=== PATIENT | female | born 1930 | race Caucasian/White ===

== ENCOUNTER 2016-07-24 18:38 | Inpatient (IN) | payer MEDICARE, BC ==
[2016-07-24] MEDS ORDERED: METHYLPREDNISOLONE PF 125MG/VIAL IVP ONE (18:45)
[2016-07-24] MEDS ORDERED: IPRATROPIUM/ALBUTEROL (0.5MG/3MG) NEB INH ONE (18:45)
--- NOTE | 2016-07-24 18:50 | Emergency Department Record ---
History of Present Illness - General Chief Complaint: Shortness of breath Stated Complaint: SHORTNESS OF BREATH Time Seen by Provider: 07/24/16 18:44 Source: Patient, Family - History of Present Illness Initial Comments: Daughter reports that she brought her Mom to the doctor's 2 days ago for a cough. She was placed on zithromax at that time and has had 3 pills of it since then. Today she was coughing harder and feeling worse so she returned to the hospital. [facility] care found to have a biox around 89-90% room air and brought her to our E.Dept. The patient denies chest pain, ERICK, nausea, vomiting, A{P, or diarrhea. She does say her abdomen and lower ribs hurt when she is coughing, and that she has been having night sweats. MD Complaint: Cough - Related Data Home Medications Medication Instructions Recorded Confirmed Last Taken Aspirin [Aspirin EC] 81 mg PO DAILY 10/05/14 07/24/16 07/24/16 Calcium Carbonate/Vitamin D3 1 each PO DAILY #0 10/05/14 07/24/16 07/24/16 [Calcium 600 + D Tablet] Levothyroxine Sodium [Synthroid] 100 mcg PO DAILY 10/05/14 07/24/16 07/24/16 Omeprazole [Prilosec] 40 mg PO DAILY 10/05/14 07/24/16 07/24/16 Pedi Multivit #22/Vit D3/Vit K 1 each PO DAILY 10/05/14 07/24/16 07/24/16 [Multivitamins Chewables Tablet] Sertraline HCl [Zoloft] 100 mg PO QHS 10/05/14 07/24/16 07/24/16 Sitagliptin Phosphate [Januvia] 100 mg PO DAILY 10/05/14 07/24/16 07/24/16 Amlodipine Besylate [Norvasc] 10 mg PO DAILY 09/13/15 07/24/16 07/24/16 Tramadol HCl [Ultram] 50 mg PO BID PRN 09/13/15 07/24/16 07/24/16 Amlodipine Besylate 5 mg PO QD tab 07/22/16 07/24/16 07/24/16 Glimepiride 2 mg PO QD tab 07/22/16 07/24/16 07/24/16 [place]-3 Fatty Acids [Fish Oil] 300 mg PO QD cap 07/22/16 07/24/16 07/24/16 Previous Rx's Medication Instructions Recorded Acetaminophen [Tylenol 500Mg Tab] 1,000 mg PO Q6H #120 tablet 10/25/14 Oxybutynin Chloride [Ditropan] 5 mg PO QHS #30 tab 10/19/15 Allergies Allergy/AdvReac Type Severity Reaction Status Date / Time butorphanol tartrate Allergy PT UNSURE Unverified 07/24/16 19:01 [From Stadol] OF REACTION Review of Systems Reviewed: No additional complaints except as noted below Constitutional: Reports: As per HPI. Denies: Chills, Fever, Malaise, Night sweats, Weakness, Weight change Eyes: Reports: As per HPI. Denies: Eye discharge, Eye pain, Photophobia, Vision change ENT: Reports: As per HPI. Denies: Congestion, Dental pain, Ear pain, Epistaxis , Hearing loss, Throat pain Respiratory: Reports: As per HPI. Denies: Cough, Dyspnea, Hemoptysis, Stridor, Wheezes Cardiovascular: Reports: As per HPI. Denies: Arrhythmia, Chest pain, Dyspnea on exertion, Edema, Murmurs, Orthopnea, Palpitations, Paroxysmal nocturnal dyspnea, Rheumatic Fever, Syncope Endocrine: Reports: As per HPI. Denies: Fatigue, Heat or cold intolerance, Polydipsia, Polyuria Gastrointestinal: Reports: As per HPI. Denies: Abdominal pain, Constipation, Diarrhea, Hematemesis, Hematochezia, Melena, Nausea, Vomiting Genitourinary: Reports: As per HPI. Denies: Abnormal menses, Discharge, Dyspareunia, Dysuria, Frequency, Hematuria, Incontinence, Retention, Urgency Musculoskeletal: Reports: As per HPI. Denies: Arthralgia, Back pain, Gout, Joint swelling, Myalgia, Neck pain Skin: Reports: As per HPI. Denies: Bruising, Change in color, Change in hair/ nails, Lesions, Pruritus, Rash Neurological: Reports: As per HPI. Denies: Abnormal gait, Confusion, Headache, Numbness, Paresthesias, Seizure, Tingling, Tremors, Vertigo, Weakness Psychiatric: Reports: As per HPI. Denies: Anxiety, Auditory hallucinations, Depression, Homicidal thoughts, Suicidal thoughts, Visual hallucinations Hematological/Lymphatic: Reports: As per HPI. Denies: Anemia, Blood Clots, Easy bleeding, Easy bruising, Swollen glands Past Medical History - SOCIAL HISTORY Smoking Status: Never smoker - RESPIRATORY Hx Respiratory Disorders: No - CARDIOVASCULAR Hx Cardio Disorders: Yes Hx Hypertension: Yes Hx Vascular Disease: Yes - NEURO Hx Neuro Disorders: Yes Hx Dementia: Yes Hx Dizziness: Yes - GI Hx GI Disorders: Yes Hx Ulcer: Yes - Hx Genitourinary Disorders: No - ENDOCRINE Hx Endocrine Disorders: Yes Hx Diabetes: Yes Hx Thyroid Disease: Yes - MUSCULOSKELETAL Hx Musculoskeletal Disorders: Yes Hx Arthritis: Yes Hx Osteoporosis: Yes - PSYCH Hx Psych Problems: Yes Hx Anxiety: Yes Hx Depression: Yes - HEMATOLOGY/ONCOLOGY Hx Hematology/Oncology Disorders: Yes Hx Bruising: Yes (easy) Family Medical History Family Hx Comment (NOT TO BE USED IN PLACE OF ITEMS BELOW): Unablt to assess at this time, awainting family to come in Hx Dementia: Brother/Sister Hx Depression: Brother/Sister Hx Diabetes: Brother/Sister Hx Heart Disease: Mother, Brother/Sister Hx HTN: Mother, Children, Brother/Sister Hx Resp Disorders: Father Hx Stroke: Mother Physical Exam - General General Appearance: Alert, Oriented x3, Cooperative, Mild distress ( intermittent hard and repeated coughing spells; speaks full sentences in between coughing episodes.) - Head Head exam: Normal inspection - Eye Eye exam: Normal appearance, PERRL Pupils: Normal accommodation - ENT ENT exam: Normal exam, Mucous membranes dry, Normal external ear exam, Normal orophraynx, TM's normal bilaterally Ear exam: Normal external inspection. negative: External canal tenderness Nasal Exam: Normal inspection. negative: Discharge, Sinus tenderness Mouth exam: Normal external inspection, Tongue normal Teeth exam: Normal inspection. negative: Dental caries Throat exam: Normal inspection. negative: Tonsillar erythema, Tonsillar exudate - Neck Neck exam: Normal inspection, Full ROM. negative: Tenderness - Respiratory Respiratory exam: Normal lung sounds bilaterally, Rhonchi, Wheezes (rhonchi and wheezes with coughing spells or deep respirations, especially right posterior mid lung lung field). negative: Respiratory distress - Cardiovascular Cardiovascular Exam: Regular rate, Normal rhythm, Normal heart sounds - GI/Abdominal GI/Abdominal exam: Soft, Normal bowel sounds. negative: Tenderness - Rectal Rectal exam: Deferred - exam: Deferred - Extremities Extremities exam: Normal inspection, Full ROM, Normal capillary refill. negative: Calf tenderness, Pedal edema, Tenderness - Back Back exam: Reports: Normal inspection, Full ROM. Denies: Muscle spasm, Rash noted, Tenderness - Neurological Neurological exam: Alert, Normal gait, Oriented X3, Reflexes normal - Psychiatric Psychiatric exam: Normal affect, Normal mood - Skin Skin exam: Dry, Intact, Normal color, Warm Course - Reevaluation(s) Reevaluation #1: Patient just returned from CT scan. Fluids infusing. 07/24/16 19:59 Reevaluation #2: Discussed with Dr. Gtz who agrees with full admission 07/24/16 20:33 Medical Decision Making - Management Options MDM Management: Additional Work-up Planned (e.g. 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 Gtz Time Discussed w/Accepting Physician: 20:34 Condition: (2) Stable Forms: Patient Portal Access
[2016-07-24 18:59] LABS: HEMATOCRIT 43.3 % (35.0-47.0); MEAN CELL VOLUME 89.1 fl (81-97); MEAN CORPUSCULAR HEMOGLOBIN 28.8 pg (27-33); MEAN CORPUSCULAR HGB CONC 32.3 g/dl (32-36); MEAN PLATELET VOLUME 9.7 fl (7.4-10.4); PLATELET COUNT 210 K/uL (130-400); RED BLOOD COUNT 4.86 M/uL (3.80-5.40); WHITE BLOOD COUNT W/O DIFF 7.6 K/uL (4.2-12.2)
[2016-07-24 19:10] LABS: INFLUENZA A NEGATIVE (NEGATIVE); INFLUENZA B NEGATIVE (NEGATIVE)
[2016-07-24 19:11] LABS: ANION GAP 17.8 (7-16); CARBON DIOXIDE 22.2 mmol/L (22-30)
[2016-07-24 19:23] LABS: TROPONIN I 0.013 ng/mL (0.00-0.034)
[2016-07-24] MEDS ORDERED: 0.9 % SODIUM CHLORIDE 500ML 500 ML IV SCH (19:45)
[2016-07-24] MEDS ORDERED: CEFTRIAXONE SODIUM 2 GM in 0.9 % SODIUM CHLORIDE 100ML 100 ML IVPB ONE (20:13)
[2016-07-24 20:23] LABS: URINE APPEARANCE CLEAR; URINE BILIRUBIN NEGATIVE (NEGATIVE); URINE BLOOD NEGATIVE (NEGATIVE); URINE COLOR YELLOW; URINE GLUCOSE (UA) NEGATIVE (NEGATIVE); URINE KETONE NEGATIVE (NEGATIVE); URINE LEUKOCYTE ESTERASE SMALL (NEGATIVE); URINE NITRITE POSITIVE (NEGATIVE); URINE PROTEIN TRACE (NEGATIVE); URINE UROBILINOGEN 0.2 E.U./dL (0.20 - 1.00)
[2016-07-24 20:38] LABS: URINE BACTERIA 2+; URINE EPITHELIAL CELLS 0 - 2 (FEW); URINE RBC 0 - 2 (NONE SEEN)
--- NOTE | 2016-07-24 20:49 | Emergency Department Record ---
History of Present Illness - General Chief Complaint: Shortness of breath Stated Complaint: SHORTNESS OF BREATH Time Seen by Provider: 07/24/16 18:44 Source: Patient, Family Mode of Arrival: Wheelchair - History of Present Illness Onset/Timin -: Days(s) Known History Of: Diabetes - Related Data Home Oxygen Therapy: No Home Medications Medication Instructions Recorded Confirmed Last Taken Aspirin [Aspirin EC] 81 mg PO DAILY 10/05/14 07/24/16 07/24/16 Calcium Carbonate/Vitamin D3 1 each PO DAILY #0 10/05/14 07/24/16 07/24/16 [Calcium 600 + D Tablet] Levothyroxine Sodium [Synthroid] 100 mcg PO DAILY 10/05/14 07/24/16 07/24/16 Omeprazole [Prilosec] 40 mg PO DAILY 10/05/14 07/24/16 07/24/16 Pedi Multivit #22/Vit D3/Vit K 1 each PO DAILY 10/05/14 07/24/16 07/24/16 [Multivitamins Chewables Tablet] Sertraline HCl [Zoloft] 100 mg PO QHS 10/05/14 07/24/16 07/24/16 Sitagliptin Phosphate [Januvia] 100 mg PO DAILY 10/05/14 07/24/16 07/24/16 Amlodipine Besylate [Norvasc] 10 mg PO DAILY 09/13/15 07/24/16 07/24/16 Tramadol HCl [Ultram] 50 mg PO BID PRN 09/13/15 07/24/16 07/24/16 Amlodipine Besylate 5 mg PO QD tab 07/22/16 07/24/16 07/24/16 Glimepiride 2 mg PO QD tab 07/22/16 07/24/16 07/24/16 [place]-3 Fatty Acids [Fish Oil] 300 mg PO QD cap 07/22/16 07/24/16 07/24/16 Previous Rx's Medication Instructions Recorded Acetaminophen [Tylenol 500Mg Tab] 1,000 mg PO Q6H #120 tablet 10/25/14 Oxybutynin Chloride [Ditropan] 5 mg PO QHS #30 tab 10/19/15 Allergies Allergy/AdvReac Type Severity Reaction Status Date / Time butorphanol tartrate Allergy PT UNSURE Unverified 07/24/16 19:01 [From Stadol] OF REACTION Travel Screening - Travel/Exposure Within Last 30 Days Have you traveled within the last 30 days?: No - Travel/Exposure Within Last Year Have you traveled outside the [place] in the last year?: No - Additonal Travel Details Have you been exposed to anyone with a communicable illness?: No - Travel Symptoms Symptom Screening: None Review of Systems Constitutional: Reports: As per HPI. Denies: Chills, Fever, Malaise, Night sweats, Weakness, Weight change Eyes: Reports: As per HPI. Denies: Eye discharge, Eye pain, Photophobia, Vision change ENT: Reports: As per HPI. Denies: Congestion, Dental pain, Ear pain, Epistaxis , Hearing loss, Throat pain Respiratory: Reports: As per HPI. Denies: Cough, Dyspnea, Hemoptysis, Stridor, Wheezes Cardiovascular: Reports: As per HPI. Denies: Arrhythmia, Chest pain, Dyspnea on exertion, Edema, Murmurs, Orthopnea, Palpitations, Paroxysmal nocturnal dyspnea, Rheumatic Fever, Syncope Endocrine: Reports: As per HPI. Denies: Fatigue, Heat or cold intolerance, Polydipsia, Polyuria Gastrointestinal: Reports: As per HPI. Denies: Abdominal pain, Constipation, Diarrhea, Hematemesis, Hematochezia, Melena, Nausea, Vomiting Genitourinary: Reports: As per HPI. Denies: Abnormal menses, Discharge, Dyspareunia, Dysuria, Frequency, Hematuria, Incontinence, Retention, Urgency Musculoskeletal: Reports: As per HPI. Denies: Arthralgia, Back pain, Gout, Joint swelling, Myalgia, Neck pain Skin: Reports: As per HPI. Denies: Bruising, Change in color, Change in hair/ nails, Lesions, Pruritus, Rash Neurological: Reports: As per HPI. Denies: Abnormal gait, Confusion, Headache, Numbness, Paresthesias, Seizure, Tingling, Tremors, Vertigo, Weakness Psychiatric: Reports: As per HPI. Denies: Anxiety, Auditory hallucinations, Depression, Homicidal thoughts, Suicidal thoughts, Visual hallucinations Hematological/Lymphatic: Reports: As per HPI. Denies: Anemia, Blood Clots, Easy bleeding, Easy bruising, Swollen glands Past Medical History - SOCIAL HISTORY Smoking Status: Never smoker - RESPIRATORY Hx Respiratory Disorders: No - CARDIOVASCULAR Hx Cardio Disorders: Yes Hx Hypertension: Yes Hx Vascular Disease: Yes - NEURO Hx Neuro Disorders: Yes Hx Dementia: Yes Hx Dizziness: Yes - GI Hx GI Disorders: Yes Hx Ulcer: Yes - Hx Genitourinary Disorders: No - ENDOCRINE Hx Endocrine Disorders: Yes Hx Diabetes: Yes Hx Thyroid Disease: Yes - MUSCULOSKELETAL Hx Musculoskeletal Disorders: Yes Hx Arthritis: Yes Hx Osteoporosis: Yes - PSYCH Hx Psych Problems: Yes Hx Anxiety: Yes Hx Depression: Yes - HEMATOLOGY/ONCOLOGY Hx Hematology/Oncology Disorders: Yes Hx Bruising: Yes (easy) Family Medical History Family Hx Comment (NOT TO BE USED IN PLACE OF ITEMS BELOW): Unablt to assess at this time, awainting family to come in Hx Dementia: Brother/Sister Hx Depression: Brother/Sister Hx Diabetes: Brother/Sister Hx Heart Disease: Mother, Brother/Sister Hx HTN: Mother, Children, Brother/Sister Hx Resp Disorders: Father Hx Stroke: Mother Course Vital Signs 07/24/16 07/24/16 07/24/16 18:41 19:25 19:40 Temperature 98.0 F Pulse Rate 98 H 84 Pulse Rate [ 87 Aix Administrator ] Respiratory 20 16 18 Rate Blood Pressure 147/94 Blood Pressure 150/78 [Right Arm] Pulse Ox 88 L 92 L 93 L 07/24/16 20:27 Temperature 98.0 F Pulse Rate Pulse Rate [ Aix Administrator ] Respiratory Rate Blood Pressure Blood Pressure [Right Arm] Pulse Ox Medical Decision Making - Lab Data Result diagrams: 07/24/16 18:45 07/24/16 18:45 Lab Results 07/24/16 07/24/16 07/24/16 Range/Units 18:45 18:45 18:45 WBC 7.6 (4.2-12.2) K/uL RBC 4.86 (3.80-5.40) M/uL Hgb 14.0 (11.6-16.0) gm/dl Hct 43.3 (35.0-47.0) % MCV 89.1 (81-97) fl MCH 28.8 (27-33) pg MCHC 32.3 (32-36) g/dl RDW 14.0 (11.5-14.5) % Plt Count 210 (130-400) K/uL MPV 9.7 (7.4-10.4) fl Neutrophils % 58.0 (47-80) % Band Neutrophils % 2.0 (0-5) % Lymphocytes % 22.0 (16-45) % Monocytes % 15.0 H (0-9) % Eosinophils % 3.0 (0-6) % Basophils % Not Reportable D-Dimer 0.80 H (0-0.59) mg/L FEU Sodium 142 (136-145) mmol/L Potassium 4.8 (3.5-5.1) mmol/L Chloride 102 (98-107) mmol/L Carbon Dioxide 22.2 (22-30) mmol/L Anion Gap 17.8 H (7-16) BUN 21 H (7-17) mg/dL Creatinine 1.0 (0.52-1.04) mg/dL Estimated GFR 56 ml/min Random Glucose 209 H (70-110) mg/dL Calcium 9.2 (8.5-10.1) mg/dL Troponin I 0.013 (0.00-0.034) ng/mL NT-Pro-B Natriuret Pep 562.00 H (<450) pg/mL Urine Color Urine Appearance Urine pH (5.0-8.0) Ur Specific [place] (1.002-1.030) Urine Protein (NEGATIVE) Urine Glucose (UA) (NEGATIVE) Urine Ketones (NEGATIVE) Urine Blood (NEGATIVE) Urine Nitrite (NEGATIVE) Urine Bilirubin (NEGATIVE) Urine Urobilinogen (0.20 - 1.00) E.U./dL Ur Leukocyte Esterase (NEGATIVE) Urine RBC (NONE SEEN) Urine WBC (0-2/hpf) Ur Epithelial Cells (FEW) Urine Bacteria Influenza Type A Ag (NEGATIVE) Influenza Type B Ag (NEGATIVE) 07/24/16 07/24/16 Range/Units 18:45 20:15 WBC (4.2-12.2) K/uL RBC (3.80-5.40) M/uL Hgb (11.6-16.0) gm/dl Hct (35.0-47.0) % MCV (81-97) fl MCH (27-33) pg MCHC (32-36) g/dl RDW (11.5-14.5) % Plt Count (130-400) K/uL MPV (7.4-10.4) fl Neutrophils % (47-80) % Band Neutrophils % (0-5) % Lymphocytes % (16-45) % Monocytes % (0-9) % Eosinophils % (0-6) % Basophils % D-Dimer (0-0.59) mg/L FEU Sodium (136-145) mmol/L Potassium (3.5-5.1) mmol/L Chloride (98-107) mmol/L Carbon Dioxide (22-30) mmol/L Anion Gap (7-16) BUN (7-17) mg/dL Creatinine (0.52-1.04) mg/dL Estimated GFR ml/min Random Glucose (70-110) mg/dL Calcium (8.5-10.1) mg/dL Troponin I (0.00-0.034) ng/mL NT-Pro-B Natriuret Pep (<450) pg/mL Urine Color Yellow Urine Appearance Clear Urine pH 5.5 (5.0-8.0) Ur Specific [place] 1.025 (1.002-1.030) Urine Protein Trace H (NEGATIVE) Urine Glucose (UA) Negative (NEGATIVE) Urine Ketones Negative (NEGATIVE) Urine Blood Negative (NEGATIVE) Urine Nitrite Positive H (NEGATIVE) Urine Bilirubin Negative (NEGATIVE) Urine Urobilinogen 0.2 (0.20 - 1.00) E.U./dL Ur Leukocyte Esterase Small H (NEGATIVE) Urine RBC 0 - 2 (NONE SEEN) Urine WBC 3 - 5 (0-2/hpf) Ur Epithelial Cells 0 - 2 (FEW) Urine Bacteria 2+ Influenza Type A Ag Negative (NEGATIVE) Influenza Type B Ag Negative (NEGATIVE) Disposition Clinical Impression: Hypoxia Pneumonia Qualifiers: Pneumonia type: due to unspecified organism Laterality: unspecified laterality Lung location: unspecified part of lung Qualified Code(s): J18.9 - Pneumonia, unspecified organism Dyspnea Qualifiers: Dyspnea type: unspecified Qualified Code(s): R06.00 - Dyspnea, unspecified Urinary Tract Infection Qualifiers: Urinary tract infection type: acute cystitis Hematuria presence: without hematuria Qualified Code(s): N30.00 - Acute cystitis without hematuria Disposition: Still a Patient at [facility] Condition: (2) Stable Forms: Patient Portal Access
[2016-07-24] MEDS ORDERED: FATTY ACIDS PO SCH (21:04)
[2016-07-24] MEDS ORDERED: CEFTRIAXONE SODIUM 2 GM in 0.9 % SODIUM CHLORIDE 100ML 100 ML IVPB SCH (21:04)
[2016-07-24] MEDS ORDERED: GLIMEPIRIDE 2 MG PO SCH (21:04)
[2016-07-24] MEDS ORDERED: OMEGA PO SCH (21:04)
[2016-07-24] MEDS ORDERED: AMLODIPINE BESYLATE 5 MG PO SCH (21:04)
[2016-07-24] MEDS: 0.9 % SODIUM CHLORIDE 1000ML 1,000 ML IV PRN (21:34)
[2016-07-24] MEDS ORDERED: ALBUTEROL SULFATE (0.083%) 2.5 MG/3 ML NEB INH SCH (22:00)
[2016-07-24] MEDS: PREGABALIN 50 MG CAPSULE PO SCH (22:00)
[2016-07-24] MEDS ORDERED: Non-Formulary MISC (Sertraline Hcl [Zoloft] 100 MG) PO SCH (22:00)
[2016-07-24] MEDS: TRAMADOL HCL 50 MG TABLET PO PRN (22:00)
[2016-07-24] MEDS: OXYBUTYNIN CHLORIDE 5MG TABLET PO SCH (22:01)
[2016-07-24] MEDS: ACETAMINOPHEN 500 MG TABLET PO SCH (22:02)
[2016-07-25] MEDS: IPRATROPIUM/ALBUTEROL (0.5MG/3MG) NEB INH SCH ×4 (00:47→20:54)
[2016-07-25] MEDS: ACETAMINOPHEN 500 MG TABLET PO SCH ×5 (02:28→21:36)
[2016-07-25] MEDS: PANTOPRAZOLE SODIUM 40 MG TABLET PO SCH (06:14)
[2016-07-25] MEDS: LEVOTHYROXINE SODIUM 100 MCG TABLET PO SCH ×2 (06:15→11:44)
[2016-07-25] MEDS ORDERED: OMEPRAZOLE 40 MG PO SCH ×2 (07:00→10:00)
--- NOTE | 2016-07-25 09:56 | History & Physical ---
History of Present Illness - Date of Service Date of Service for History & Physical: 07/25/16 - History of Present Illness Admitting Diagnosis: Pneumonia, hypoxia; respiratory distress. History of Present Illness: 85yo female presented to ED after daughter brought her in for a two day history of cough after being seen in [facility]. History obtained mostly from chart as patient has dementia and is a poor historian. She had been seen initially outpatient and was placed on zithromax at that time and has had 3 pills of it since then. Yesterday, she was coughing harder and feeling worse so [facility] in [facility]. Yesterday [facility] found to have a biox around 89-90% room air and brought her to our E.Dept. in the ED, she had CTA, was started on rocephin and azithro. Urine was completed and UTI was found. The patient denies chest pain, ERICK, nausea, vomiting, or diarrhea. She does say her abdomen and lower ribs hurt when she is coughing, and that she has been having night sweats. Patient currently resides with her daughter. She is usually independent with her ADL's. Travel Screening - Travel/Exposure Within Last 30 Days Have you traveled within the last 30 days?: No - Travel/Exposure Within Last Year Have you traveled outside the [place] in the last year?: No - Additonal Travel Details Have you been exposed to anyone with a communicable illness?: No - Travel Symptoms Symptom Screening: None Review of Systems Constitutional: Reports: As per HPI. Denies: Chills, Fever, Malaise, Night sweats, Weakness, Weight change Eyes: Reports: As per HPI. Denies: Eye discharge, Eye pain, Photophobia, Vision change ENT: Reports: As per HPI. Denies: Congestion, Dental pain, Ear pain, Epistaxis , Hearing loss, Throat pain Respiratory: Reports: As per HPI, Cough, Dyspnea, Wheezes. Denies: Hemoptysis, Stridor Cardiovascular: Reports: As per HPI. Denies: Arrhythmia, Chest pain, Dyspnea on exertion, Edema, Murmurs, Orthopnea, Palpitations, Paroxysmal nocturnal dyspnea, Rheumatic Fever, Syncope Endocrine: Reports: As per HPI. Denies: Fatigue, Heat or cold intolerance, Polydipsia, Polyuria Gastrointestinal: Reports: As per HPI. Denies: Abdominal pain, Constipation, Diarrhea, Hematemesis, Hematochezia, Melena, Nausea, Vomiting Genitourinary: Reports: As per HPI. Denies: Abnormal menses, Discharge, Dyspareunia, Dysuria, Frequency, Hematuria, Incontinence, Retention, Urgency Musculoskeletal: Reports: As per HPI. Denies: Arthralgia, Back pain, Gout, Joint swelling, Myalgia, Neck pain Skin: Reports: As per HPI. Denies: Bruising, Change in color, Change in hair/ nails, Lesions, Pruritus, Rash Neurological: Reports: As per HPI. Denies: Abnormal gait, Confusion, Headache, Numbness, Paresthesias, Seizure, Tingling, Tremors, Vertigo, Weakness Psychiatric: Reports: As per HPI. Denies: Anxiety, Auditory hallucinations, Depression, Homicidal thoughts, Suicidal thoughts, Visual hallucinations Hematological/Lymphatic: Reports: As per HPI. Denies: Anemia, Blood Clots, Easy bleeding, Easy bruising, Swollen glands Past Medical History - SOCIAL HISTORY Smoking Status: Never smoker - RESPIRATORY Hx Respiratory Disorders: No - CARDIOVASCULAR Hx Cardio Disorders: Yes Hx Hypertension: Yes Hx Vascular Disease: Yes - NEURO Hx Neuro Disorders: Yes Hx Dementia: Yes Hx Dizziness: Yes - GI Hx GI Disorders: Yes Hx Ulcer: Yes - Hx Genitourinary Disorders: No - ENDOCRINE Hx Endocrine Disorders: Yes Hx Diabetes: Yes Hx Thyroid Disease: Yes - MUSCULOSKELETAL Hx Musculoskeletal Disorders: Yes Hx Arthritis: Yes Hx Osteoporosis: Yes - PSYCH Hx Psych Problems: Yes Hx Anxiety: Yes Hx Depression: Yes - HEMATOLOGY/ONCOLOGY Hx Hematology/Oncology Disorders: Yes Hx Bruising: Yes (easy) Family Medical History Any Significant Family History?: Yes Hx Dementia: Brother/Sister Hx Depression: Brother/Sister Hx Diabetes: Brother/Sister Hx Heart Disease: Mother, Brother/Sister Hx HTN: Mother, Children, Brother/Sister Hx Resp Disorders: Father Hx Stroke: Mother H&P Meds/Allergies - Allergies Allergies: Allergies Allergy/AdvReac Type Severity Reaction Status Date / Time butorphanol tartrate Allergy PT UNSURE Unverified 07/24/16 19:01 [From Stadol] OF REACTION - Home Medications Home Medications Medication Instructions Recorded Confirmed Last Taken Aspirin [Aspirin EC] 81 mg PO DAILY 10/05/14 07/24/16 07/24/16 Calcium Carbonate/Vitamin D3 1 each PO DAILY #0 10/05/14 07/24/16 07/24/16 [Calcium 600 + D Tablet] Levothyroxine Sodium [Synthroid] 100 mcg PO DAILY 10/05/14 07/24/16 07/24/16 Omeprazole [Prilosec] 40 mg PO DAILY 10/05/14 07/24/16 07/24/16 Pedi Multivit #22/Vit D3/Vit K 1 each PO DAILY 10/05/14 07/24/16 07/24/16 [Multivitamins Chewables Tablet] Sertraline HCl [Zoloft] 100 mg PO QHS 10/05/14 07/24/16 07/24/16 Sitagliptin Phosphate [Januvia] 100 mg PO DAILY 10/05/14 07/24/16 07/24/16 Amlodipine Besylate [Norvasc] 10 mg PO DAILY 09/13/15 07/24/16 1 Day Ago Tramadol HCl [Ultram] 50 mg PO BID PRN 09/13/15 07/24/16 07/24/16 Amlodipine Besylate 5 mg PO QD tab 07/22/16 07/24/16 07/24/16 Glimepiride 2 mg PO QD tab 07/22/16 07/24/16 07/24/16 [place]-3 Fatty Acids [Fish Oil] 300 mg PO QD cap 07/22/16 07/24/16 07/24/16 Previous Rx's Medication Instructions Recorded Acetaminophen [Tylenol 500Mg Tab] 1,000 mg PO Q6H #120 tablet 10/25/14 Oxybutynin Chloride [Ditropan] 5 mg PO QHS #30 tab 10/19/15 - Active Medications Active Medications: Current Medications Acetaminophen (Tylenol 500mg Tab) 1,000 mg PO Q6H [facility] Last Admin: 07/25/16 02:28 Dose: Not Given Albuterol/Ipratropium (Duoneb) 3 ml INH RESP.Q6H.[facility] Last Admin: 07/25/16 06:09 Dose: 3 ml Aspirin (Ecotrin (Ec)) 81 mg PO DAILY [facility] Sodium Chloride () 500 mls @ 0 mls/hr IV .Q0M [facility] PRN Reason: Wide Open Last Admin: 07/24/16 20:25 Dose: 500 mls/hr Sodium Chloride () 1,000 mls @ 100 mls/hr IV .Q10H PRN PRN Reason: LARGE VOLUME IV Last Admin: 07/24/16 21:34 Dose: 100 mls/hr Levofloxacin/Dextrose 500 mg/ (Glucose) 100 mls @ 125 mls/hr IVPB Q24H [facility] Stop: 07/30/16 10:01 Levothyroxine Sodium (Synthroid) 100 mcg PO DAILY [facility] Last Admin: 07/25/16 06:15 Dose: 100 mcg Non-Formulary Medication (Calcium Carbonate/Vitamin D3 [Calcium 600 + D Tablet] ) 1 each PO DAILY [facility] Non-Formulary Medication (Glimepiride [Glimepiride]) 2 mg PO QD [facility] Last Admin: 07/24/16 21:36 Dose: Not Given Non-Formulary Medication ([place]-3 Fatty Acids [Fish Oil]) 300 mg PO QD [facility] Last Admin: 07/24/16 21:36 Dose: Not Given Non-Formulary Medication (Pedi Multivit #22/Vit D3/Vit K [Multivitamins Chewables Tablet]) 1 each PO DAILY [facility] Non-Formulary Medication (Sertraline Hcl [Zoloft]) 100 mg PO QHS [facility] Last Admin: 07/24/16 22:01 Dose: 100 mg Non-Formulary Medication (Sitagliptin Phosphate [Januvia]) 100 mg PO DAILY [facility] Non-Formulary Medication (Amlodipine Besylate [Amlodipine Besylate]) 5 mg PO QD [facility] Oxybutynin Chloride (Ditropan) 5 mg PO QHS [facility] Last Admin: 07/24/16 22:01 Dose: 5 mg Pantoprazole Sodium (Protonix) 40 mg PO DAILYAC [facility] Last Admin: 07/25/16 06:14 Dose: 40 mg Pregabalin (Lyrica) 75 mg PO QHS [facility] Last Admin: 07/24/16 22:00 Dose: 75 mg Tramadol HCl (Ultram) 50 mg PO BID PRN PRN Reason: Pain - General Last Admin: 07/24/16 22:00 Dose: 50 mg Physical Exam - Vital Signs Vital Signs: Vital Signs - Last 24 Hrs Temp Pulse Pulse Resp BP Pulse Ox 07/25/16 06:13 90 20 93 L 07/25/16 05:04 97.4 F L 89 20 157/93 95 07/24/16 21:15 96 H 20 07/24/16 21:04 97.5 F L 96 H 20 160/85 94 L - General General Appearance: Alert, Oriented x3, Cooperative, Mild distress ( intermittent hard and repeated coughing spells; speaks full sentences in between coughing episodes.) - Head Head exam: Normal inspection - Eye Eye exam: Normal appearance, PERRL Pupils: Normal accommodation - ENT ENT exam: Normal exam, Mucous membranes dry, Normal external ear exam, Normal orophraynx, TM's normal bilaterally Ear exam: Normal external inspection. negative: External canal tenderness Nasal Exam: Normal inspection. negative: Discharge, Sinus tenderness Mouth exam: Normal external inspection, Tongue normal Teeth exam: Normal inspection. negative: Dental caries Throat exam: Normal inspection. negative: Tonsillar erythema, Tonsillar exudate - Neck Neck exam: Normal inspection, Full ROM. negative: Tenderness - Respiratory Respiratory exam: Normal lung sounds bilaterally, Decreased breath sounds, Rhonchi, Wheezes (rhonchi and wheezes with coughing spells or deep respirations , especially right posterior mid lung lung field). negative: Respiratory distress - Cardiovascular Cardiovascular Exam: Regular rate, Normal rhythm, Normal heart sounds - GI/Abdominal GI/Abdominal exam: Soft, Normal bowel sounds. negative: Tenderness - Rectal Rectal exam: Deferred - exam: Deferred - Extremities Extremities exam: Normal inspection, Full ROM, Normal capillary refill. negative: Calf tenderness, Pedal edema, Tenderness - Back Back exam: Reports: Normal inspection, Full ROM. Denies: Muscle spasm, Rash noted, Tenderness - Neurological Neurological exam: Alert. negative: Oriented X3 (oreinted to person and place only) - Psychiatric Psychiatric exam: Anxious - Skin Skin exam: Dry, Intact, Normal color, Warm Results - Labs Result Diagrams: 07/24/16 18:45 07/24/16 18:45 VTE H&P Assessment - Risk for VTE Risk for VTE: Yes Risk Level: Moderate Risk Assessment Date: 07/25/16 Risk Assessment Time: 13:28 VTE Orders Placed or Will Be Placed: Yes Plan - Inpatient Certification Inpatient Certification: Admit to inpatient care: Based on my medical assessment, after consideration of patient's risk factors (age, co-morbidities and patient presenting symptoms and acuity), I expect that this patient will remain in the hospital greater than or equal to two midnights and that the services needed warrant inpatient care because: Patient Risk Factors: [] Estimated length of stay: [] The patient may reasonably be expected to be discharged or transferred to a hospital within 96 hours after admission to [facility]. Services needed: [] Post hospital care (if known): [] I certify that my determination is in accordance with my understanding of Medicare requirements for reasonable and necessary inpatient services. - Detailed Diagnosis and Plan (1) Shortness of breath Current Visit: Yes Status: Acute Base Code: R06.02 - SHORTNESS OF BREATH Comment: 07/25- given steroid burst in ED and breathing treatment which showed significant improvment. Will treat as if COPD exaccerbation at this time with breathing treatments, prophylactic antibiotic, and steroids. I have changed antibiotic to levaquin (from rochephin and azithro) for better urinary penetration due to concurrent UTI. Will do ambulatory biox and night time biox to see if qualifies for oxygen. (2) Hypothyroid Current Visit: No Status: Acute Qualifiers: Hypothyroidism type: acquired Qualified Code(s): E03.9 - Hypothyroidism, unspecified Base Code: E03.9 - HYPOTHYROIDISM, UNSPECIFIED Comment: 10/23/16- will continue home medication (3) HTN (hypertension) Current Visit: No Status: Acute Qualifiers: Hypertension type: essential hypertension Base Code: I10 - ESSENTIAL ( PRIMARY) HYPERTENSION Comment: 07/26/16: -Will plan to continue patients home medications, stable presently (4) UTI (urinary tract infection), uncomplicated Current Visit: Yes Status: Acute Base Code: N39.0 - URINARY TRACT INFECTION , SITE NOT SPECIFIED Comment: 07/25/16- 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 (5) DVT prophylaxis Current Visit: No Status: Acute Base Code: [id number] - Comment: 07/25/16: - Patient will continue ASA 81mg QD once home and will start lovenox - Encouraged patient to remain ambulatory and active to reduce risk of DVT. (6) Full code status Current Visit: No Status: Acute Base Code: Z78.9 - OTHER SPECIFIED HEALTH STATUS Comment: 07/25/16- Patient remains full code status
[2016-07-25] MEDS ORDERED: AMLODIPINE BESYLATE 5MG TAB PO SCH (10:00)
[2016-07-25] MEDS ORDERED: AZITHROMYCIN 500 MG TABLET PO SCH (10:00)
[2016-07-25] MEDS ORDERED: LEVOTHYROXINE SODIUM 100 MCG TABLET PO SCH (10:00)
--- NOTE | 2016-07-25 10:20 | Physician Progress Note ---
Subjective - Date Date of Physician Progress Note: 07/25/16 Objective - Vital Signs Vital Signs: Vital Signs - Last 24 Hrs Temp Pulse Pulse Resp BP Pulse Ox 07/25/16 06:13 90 20 93 L 07/25/16 05:04 97.4 F L 89 20 157/93 95 07/24/16 21:15 96 H 20 07/24/16 21:04 97.5 F L 96 H 20 160/85 94 L - General General Appearance: Alert, Oriented x3, Cooperative, Mild distress ( intermittent hard and repeated coughing spells; speaks full sentences in between coughing episodes.) - Head Head exam: Normal inspection - Eye Eye exam: Normal appearance, PERRL Pupils: Normal accommodation - ENT ENT exam: Normal exam, Mucous membranes dry, Normal external ear exam, Normal orophraynx, TM's normal bilaterally Ear exam: Normal external inspection. negative: External canal tenderness Nasal Exam: Normal inspection. negative: Discharge, Sinus tenderness Mouth exam: Normal external inspection, Tongue normal Teeth exam: Normal inspection. negative: Dental caries Throat exam: Normal inspection. negative: Tonsillar erythema, Tonsillar exudate - Neck Neck exam: Normal inspection, Full ROM. negative: Tenderness - Respiratory Respiratory exam: Normal lung sounds bilaterally, Rhonchi, Wheezes (rhonchi and wheezes with coughing spells or deep respirations, especially right posterior mid lung lung field). negative: Respiratory distress - Cardiovascular Cardiovascular Exam: Regular rate, Normal rhythm, Normal heart sounds - GI/Abdominal GI/Abdominal exam: Soft, Normal bowel sounds. negative: Tenderness - Rectal Rectal exam: Deferred - exam: Deferred - Extremities Extremities exam: Normal inspection, Full ROM, Normal capillary refill. negative: Calf tenderness, Pedal edema, Tenderness - Back Back exam: Reports: Normal inspection, Full ROM. Denies: Muscle spasm, Rash noted, Tenderness - Neurological Neurological exam: Alert, Normal gait, Oriented X3, Reflexes normal - Psychiatric Psychiatric exam: Normal affect, Normal mood - Skin Skin exam: Dry, Intact, Normal color, Warm Results - Labs Result Diagrams: 07/24/16 18:45 07/24/16 18:45 DVT/PE Assessment - Risk for VTE Risk for VTE: No - Active Medicaitons Current Medications: Current Medications Acetaminophen (Tylenol 500mg Tab) 1,000 mg PO Q6H [facility] Last Admin: 07/25/16 02:28 Dose: Not Given Albuterol/Ipratropium (Duoneb) 3 ml INH RESP.Q6H.[facility] Last Admin: 07/25/16 06:09 Dose: 3 ml Aspirin (Ecotrin (Ec)) 81 mg PO DAILY [facility] Sodium Chloride () 500 mls @ 0 mls/hr IV .Q0M [facility] PRN Reason: Wide Open Last Admin: 07/24/16 20:25 Dose: 500 mls/hr Sodium Chloride () 1,000 mls @ 100 mls/hr IV .Q10H PRN PRN Reason: LARGE VOLUME IV Last Admin: 07/24/16 21:34 Dose: 100 mls/hr Levofloxacin/Dextrose 500 mg/ (Glucose) 100 mls @ 125 mls/hr IVPB Q24H [facility] Stop: 07/30/16 10:01 Levothyroxine Sodium (Synthroid) 100 mcg PO DAILY [facility] Last Admin: 07/25/16 06:15 Dose: 100 mcg Non-Formulary Medication (Calcium Carbonate/Vitamin D3 [Calcium 600 + D Tablet] ) 1 each PO DAILY [facility] Non-Formulary Medication (Glimepiride [Glimepiride]) 2 mg PO QD [facility] Last Admin: 07/24/16 21:36 Dose: Not Given Non-Formulary Medication ([place]-3 Fatty Acids [Fish Oil]) 300 mg PO QD [facility] Last Admin: 07/24/16 21:36 Dose: Not Given Non-Formulary Medication (Pedi Multivit #22/Vit D3/Vit K [Multivitamins Chewables Tablet]) 1 each PO DAILY [facility] Non-Formulary Medication (Sertraline Hcl [Zoloft]) 100 mg PO QHS [facility] Last Admin: 07/24/16 22:01 Dose: 100 mg Non-Formulary Medication (Sitagliptin Phosphate [Januvia]) 100 mg PO DAILY [facility] Non-Formulary Medication (Amlodipine Besylate [Amlodipine Besylate]) 5 mg PO QD [facility] Oxybutynin Chloride (Ditropan) 5 mg PO QHS [facility] Last Admin: 07/24/16 22:01 Dose: 5 mg Pantoprazole Sodium (Protonix) 40 mg PO DAILYAC [facility] Last Admin: 07/25/16 06:14 Dose: 40 mg Pregabalin (Lyrica) 75 mg PO QHS [facility] Last Admin: 07/24/16 22:00 Dose: 75 mg Tramadol HCl (Ultram) 50 mg PO BID PRN PRN Reason: Pain - General Last Admin: 07/24/16 22:00 Dose: 50 mg AMI Plan - Labs Result Diagrams: 07/24/16 18:45 07/24/16 18:45
[2016-07-25] MEDS: CALCIUM CARB/VITAMIN D 500MG/200IU PO SCH (11:43)
[2016-07-25] MEDS: GLIMEPIRIDE 2 MG TABLET PO SCH (11:44)
[2016-07-25] MEDS: AMLODIPINE BESYLATE 5MG TAB PO SCH (11:45)
[2016-07-25] MEDS: ASPIRIN 81 MG TABEC PO SCH (11:45)
[2016-07-25] MEDS: FATTY ACIDS PO SCH (11:46)
[2016-07-25] MEDS: OMEGA PO SCH (11:46)
[2016-07-25] MEDS: SITAGLIPTIN PHOSPHATE 100 MG PO SCH (11:46)
[2016-07-25] MEDS: MULTIVITAMINS/MINERALS TABLET PO SCH (11:47)
[2016-07-25] MEDS: LEVOFLOXACIN 500MG IVPB 500 MG in DEXTROSE 1 BAG IVPB SCH (11:48)
[2016-07-25] MEDS: PREGABALIN 50 MG CAPSULE PO SCH (21:34)
[2016-07-25] MEDS: TRAMADOL HCL 50 MG TABLET PO PRN (21:35)
[2016-07-25] MEDS: PATIENT OWN MED: TD SCH (21:37)
[2016-07-25] MEDS: SERTRALINE HCL 50 MG TABLET PO SCH (21:37)
[2016-07-25] MEDS: OXYBUTYNIN CHLORIDE 5MG TABLET PO SCH (21:37)
[2016-07-26] MEDS: IPRATROPIUM/ALBUTEROL (0.5MG/3MG) NEB INH SCH ×5 (02:18→22:34)
[2016-07-26] MEDS: ACETAMINOPHEN 500 MG TABLET PO SCH ×4 (03:00→21:18)
[2016-07-26] MEDS: PANTOPRAZOLE SODIUM 40 MG TABLET PO SCH ×2 (05:53→06:10)
[2016-07-26] MEDS: LEVOTHYROXINE SODIUM 100 MCG TABLET PO SCH ×2 (05:54→09:18)
[2016-07-26] MEDS: 0.9 % SODIUM CHLORIDE 1000ML 1,000 ML IV PRN ×2 (05:55→17:57)
[2016-07-26] MEDS: ASPIRIN 81 MG TABEC PO SCH (09:13)
[2016-07-26] MEDS: LEVOFLOXACIN 500MG IVPB 500 MG in DEXTROSE 1 BAG IVPB SCH (09:17)
[2016-07-26] MEDS: AMLODIPINE BESYLATE 5MG TAB PO SCH (09:25)
[2016-07-26] MEDS: CALCIUM CARB/VITAMIN D 500MG/200IU PO SCH (10:20)
[2016-07-26] MEDS: MULTIVITAMINS/MINERALS TABLET PO SCH (10:20)
[2016-07-26] MEDS: GLIMEPIRIDE 2 MG TABLET PO SCH (10:20)
[2016-07-26] MEDS: OMEGA PO SCH (10:24)
[2016-07-26] MEDS: FATTY ACIDS PO SCH (10:24)
[2016-07-26] MEDS: SITAGLIPTIN PHOSPHATE 100 MG PO SCH (12:20)
--- NOTE | 2016-07-26 14:29 | Physician Progress Note ---
Subjective - Date Date of Physician Progress Note: 07/26/16 - Subjective Subjective Comment: Improved coughing today and mobilizing more secretions but still heavy coughing and fatigue. Objective - Vital Signs Vital Signs: Vital Signs - Last 24 Hrs Temp Pulse Pulse Resp BP Pulse Ox 07/26/16 13:00 98.2 F 78 16 117/90 94 L 07/26/16 09:00 74 18 07/26/16 06:36 92 L 07/26/16 06:35 83 L 07/26/16 06:25 70 18 92 L 07/26/16 05:00 97.8 F 74 20 133/71 92 L 07/25/16 21:00 98.0 F 79 20 137/72 94 L 07/25/16 20:55 80 18 92 L 07/25/16 20:31 95 H 18 - General General Appearance: Alert, Oriented x3, Cooperative, Mild distress ( intermittent hard and repeated coughing spells; speaks full sentences in between coughing episodes.) - Head Head exam: Normal inspection - Eye Eye exam: Normal appearance, PERRL Pupils: Normal accommodation - ENT ENT exam: Normal exam, Mucous membranes dry, Normal external ear exam, Normal orophraynx, TM's normal bilaterally Ear exam: Normal external inspection. negative: External canal tenderness Nasal Exam: Normal inspection. negative: Discharge, Sinus tenderness Mouth exam: Normal external inspection, Tongue normal Teeth exam: Normal inspection. negative: Dental caries Throat exam: Normal inspection. negative: Tonsillar erythema, Tonsillar exudate - Neck Neck exam: Normal inspection, Full ROM. negative: Tenderness - Respiratory Respiratory exam: Normal lung sounds bilaterally, Decreased breath sounds, Rhonchi, Wheezes (rhonchi and wheezes with coughing spells or deep respirations , especially right posterior mid lung lung field). negative: Respiratory distress - Cardiovascular Cardiovascular Exam: Regular rate, Normal rhythm, Normal heart sounds - GI/Abdominal GI/Abdominal exam: Soft, Normal bowel sounds. negative: Tenderness - Rectal Rectal exam: Deferred - exam: Deferred - Extremities Extremities exam: Normal inspection, Full ROM, Normal capillary refill. negative: Calf tenderness, Pedal edema, Tenderness - Back Back exam: Reports: Normal inspection, Full ROM. Denies: Muscle spasm, Rash noted, Tenderness - Neurological Neurological exam: Alert. negative: Oriented X3 (oreinted to person and place only) - Psychiatric Psychiatric exam: Anxious - Skin Skin exam: Dry, Intact, Normal color, Warm Assessment and Plan - Assessment and Plan (1) Shortness of breath Current Visit: Yes Status: Acute Base Code: R06.02 - SHORTNESS OF BREATH Comment: 07/26- patient continuing to have poor air movement but mobilizing lung congestion better. given steroid burst in ED and breathing treatment which showed significant improvment. Will treat as if COPD exaccerbation at this time with breathing treatments, prophylactic antibiotic, and steroids. I have changed antibiotic to levaquin (from rochephin and azithro) for better urinary penetration due to concurrent UTI. Will do ambulatory biox and night time biox to see if qualifies for oxygen. (2) Hypothyroid Current Visit: No Status: Acute Qualifiers: Hypothyroidism type: acquired Qualified Code(s): E03.9 - Hypothyroidism, unspecified Base Code: E03.9 - HYPOTHYROIDISM, UNSPECIFIED Comment: 10/23/16- will continue home medication (3) HTN (hypertension) Current Visit: No Status: Acute Qualifiers: Hypertension type: essential hypertension Base Code: I10 - ESSENTIAL ( PRIMARY) HYPERTENSION Comment: 07/26/16: -Will plan to continue patients home medications, stable presently (4) UTI (urinary tract infection), uncomplicated Current Visit: Yes Status: Acute Base Code: N39.0 - URINARY TRACT INFECTION , SITE NOT SPECIFIED Comment: 07/26/16- 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 (5) DVT prophylaxis Current Visit: No Status: Acute Base Code: [id number] - Comment: 07/25/16: - Patient will continue ASA 81mg QD once home and will start lovenox - Encouraged patient to remain ambulatory and active to reduce risk of DVT. (6) Full code status Current Visit: No Status: Acute Base Code: Z78.9 - OTHER SPECIFIED HEALTH STATUS Comment: 07/25/16- Patient remains full code status Results - Labs Result Diagrams: 07/24/16 18:45 07/24/16 18:45 DVT/PE Assessment - Risk for VTE Risk for VTE: No Risk Level: Moderate Risk Assessment Date: 07/25/16 Risk Assessment Time: 13:28 VTE Orders Placed or Will Be Placed: Yes - Active Medicaitons Current Medications: Current Medications Acetaminophen (Tylenol 500mg Tab) 1,000 mg PO Q6H [facility] Last Admin: 07/26/16 09:13 Dose: 1,000 mg Albuterol/Ipratropium (Duoneb) 3 ml INH RESP.Q6H.WA [facility] Last Admin: 07/26/16 11:27 Dose: 3 ml Amlodipine Besylate (Norvasc) 5 mg PO DAILY [facility] Last Admin: 07/26/16 09:25 Dose: 5 mg Aspirin (Ecotrin (Ec)) 81 mg PO DAILY [facility] Last Admin: 07/26/16 09:13 Dose: 81 mg Calcium/Vitamin D (Calcium 500+D Tablet) 1 tab PO QD [facility] Last Admin: 07/26/16 10:20 Dose: 1 tab Enoxaparin Sodium (Lovenox) 40 mg SC DAILY [facility] Glimepiride (Amaryl) 2 mg PO QD [facility] Last Admin: 07/26/16 10:20 Dose: 2 mg Sodium Chloride () 500 mls @ 0 mls/hr IV .Q0M [facility] PRN Reason: Wide Open Last Admin: 07/24/16 20:25 Dose: 500 mls/hr Sodium Chloride () 1,000 mls @ 100 mls/hr IV .Q10H PRN PRN Reason: LARGE VOLUME IV Last Admin: 07/26/16 05:55 Dose: 100 mls/hr Levofloxacin (Levaquin Tab) 500 mg PO DAILYFLUOR [facility] Levothyroxine Sodium (Synthroid) 100 mcg PO DAILY [facility] Last Admin: 07/26/16 09:18 Dose: Not Given Multivitamins/Minerals (Centrum) 1 tab PO DAILY [facility] Last Admin: 07/26/16 10:20 Dose: 1 tab Oxybutynin Chloride (Ditropan) 5 mg PO QHS [facility] Last Admin: 07/25/16 21:37 Dose: 5 mg Pantoprazole Sodium (Protonix) 40 mg PO DAILYAC [facility] Last Admin: 07/26/16 06:10 Dose: Not Given Patient Own Med: Sitagliptin Phosphate [Januvia] 100 Mg) 1 each PO QD [facility] Last Admin: 07/26/16 12:20 Dose: 1 each Patient Own Med: [place]-3 Fatty Acids [Fish Oil] 300 Mg) 1 each PO QD [facility] Last Admin: 07/26/16 10:24 Dose: Not Given Patient Own Medication () 1 each TD QHS [facility] Last Admin: 07/25/16 21:37 Dose: 1 each Pregabalin (Lyrica) 75 mg PO QHS [facility] Last Admin: 07/25/16 21:34 Dose: 75 mg Sertraline HCl (Zoloft) 100 mg PO QHS [facility] Last Admin: 07/25/16 21:37 Dose: 100 mg Tramadol HCl (Ultram) 50 mg PO BID PRN PRN Reason: Pain - General Last Admin: 07/25/16 21:35 Dose: 50 mg AMI Plan - Labs Result Diagrams: 07/24/16 18:45 07/24/16 18:45
[2016-07-26] MEDS: SERTRALINE HCL 50 MG TABLET PO SCH (21:18)
[2016-07-26] MEDS: PREGABALIN 50 MG CAPSULE PO SCH (21:22)
[2016-07-26] MEDS: PATIENT OWN MED: TD SCH (21:23)
[2016-07-26] MEDS: OXYBUTYNIN CHLORIDE 5MG TABLET PO SCH (23:12)
[2016-07-27] MEDS: ACETAMINOPHEN 500 MG TABLET PO SCH ×3 (04:44→15:05)
[2016-07-27] MEDS ORDERED: LEVOFLOXACIN 500 MG TABLET PO SCH (06:00)
[2016-07-27] MEDS: IPRATROPIUM/ALBUTEROL (0.5MG/3MG) NEB INH SCH ×2 (06:03→11:33)
[2016-07-27] MEDS: LEVOTHYROXINE SODIUM 100 MCG TABLET PO SCH ×2 (06:26→09:20)
[2016-07-27] MEDS: PANTOPRAZOLE SODIUM 40 MG TABLET PO SCH (06:26)
--- NOTE | 2016-07-27 07:47 | CT ANGIOGRAM REPORT ---
EXAM: CTA OF THE CHEST HISTORY: COUGH. TECHNIQUE: CTA of the chest was performed following the IV administration of 65 ml of Omnipaque 350 contrast. Axial images were obtained with coronal and sagittal MIP reconstructions. Comparison: None. FINDINGS: The mediastinal vasculature enhances normally. There is no intraluminal filling defect to suggest pulmonary embolus. Cardiomegaly. Nonspecific right hilar and subcarinal adenopathy. The subcarinal node measures approximately 2.1 x 1.8 cm. Negative for thoracic aortic aneurysm or dissection. Moderate atheromatous changes are present. Limited evaluation of the upper abdomen shows hepatic and splenic granulomata. The osseous structures are grossly intact. No pneumothorax. The visualized airways are patent. Fibrotic changes are present bilaterally with areas of bronchiectasis. No effusion. Right humeral prosthesis noted. IMPRESSION: 1. NEGATIVE FOR PULMONARY EMBOLUS, THORACIC AORTIC ANEURYSM, OR DISSECTION. 2. FIBROTIC CHANGES BILATERALLY. NONSPECIFIC RIGHT HILAR AND MEDIASTINAL ADENOPATHY. 3. CARDIOMEGALY WITH ATHEROMATOUS CHANGE. NOT STATED PREVIOUSLY, SURGICAL CLIPS IN THE UPPER ABDOMEN. JOB NUMBER: [id number] [facility]
[2016-07-27] MEDS: CALCIUM CARB/VITAMIN D 500MG/200IU PO SCH ×2 (09:18→10:04)
[2016-07-27] MEDS: ASPIRIN 81 MG TABEC PO SCH (09:18)
[2016-07-27] MEDS: AMLODIPINE BESYLATE 5MG TAB PO SCH (09:18)
[2016-07-27] MEDS: GLIMEPIRIDE 2 MG TABLET PO SCH ×2 (09:18→10:04)
[2016-07-27] MEDS: MULTIVITAMINS/MINERALS TABLET PO SCH (09:18)
[2016-07-27] MEDS ORDERED: ENOXAPARIN 40 MG/0.4 ML SYR SC SCH (10:00)
[2016-07-27] MEDS: OMEGA PO SCH (10:06)
[2016-07-27] MEDS: FATTY ACIDS PO SCH (10:06)
[2016-07-27] MEDS: SITAGLIPTIN PHOSPHATE 100 MG PO SCH (12:20)
--- NOTE | 2016-07-27 15:47 | Discharge Summary ---
Providers Discharge Summary Date: 07/27/16 Date of admission: 07/24/16 21:01 Expected Date of Discharge: 07/27/16 Attending physician: HONG CARRERA Primary care physician: RJ SPARKS D.O. Physical Exam - Vital Signs Vital Signs: Vital Signs - Last 24 Hrs Temp Pulse Pulse Resp BP Pulse Ox 07/27/16 15:00 97.6 F 79 18 143/75 96 07/27/16 11:34 78 20 07/27/16 08:41 88 20 07/27/16 07:45 97.5 F L 75 18 164/80 94 L 07/27/16 06:05 85 20 93 L 07/27/16 05:00 97.6 F 83 18 151/85 95 07/26/16 20:48 73 07/26/16 20:00 97.9 F 75 18 140/78 94 L 07/26/16 17:02 72 20 - General General Appearance: Alert, Oriented x3, Cooperative, Mild distress ( intermittent hard and repeated coughing spells; speaks full sentences in between coughing episodes.) - Head Head exam: Normal inspection - Eye Eye exam: Normal appearance, PERRL Pupils: Normal accommodation - ENT ENT exam: Normal exam, Mucous membranes dry, Normal external ear exam, Normal orophraynx, TM's normal bilaterally Ear exam: Normal external inspection. negative: External canal tenderness Nasal Exam: Normal inspection. negative: Discharge, Sinus tenderness Mouth exam: Normal external inspection, Tongue normal Teeth exam: Normal inspection. negative: Dental caries Throat exam: Normal inspection. negative: Tonsillar erythema, Tonsillar exudate - Neck Neck exam: Normal inspection, Full ROM. negative: Tenderness - Respiratory Respiratory exam: Normal lung sounds bilaterally, Decreased breath sounds, Rhonchi, Wheezes (rhonchi and wheezes with coughing spells or deep respirations , especially right posterior mid lung lung field). negative: Respiratory distress - Cardiovascular Cardiovascular Exam: Regular rate, Normal rhythm, Normal heart sounds - GI/Abdominal GI/Abdominal exam: Soft, Normal bowel sounds. negative: Tenderness - Rectal Rectal exam: Deferred - exam: Deferred - Extremities Extremities exam: Normal inspection, Full ROM, Normal capillary refill. negative: Calf tenderness, Pedal edema, Tenderness - Back Back exam: Reports: Normal inspection, Full ROM. Denies: Muscle spasm, Rash noted, Tenderness - Neurological Neurological exam: Alert. negative: Oriented X3 (oreinted to person and place only) - Psychiatric Psychiatric exam: Anxious - Skin Skin exam: Dry, Intact, Normal color, Warm Hospitalization - Hospitalization Admission Diagnosis: Pneumonia, hypoxia; respiratory distress. - Problem List/Discharge Diagnosis (1) Shortness of breath Current Visit: Yes Status: Acute Base Code: R06.02 - SHORTNESS OF BREATH Comment: 07/27- patient improved lung sounds from yesterday. did ambulatory biox and needs 2L at rest and with activity. given steroid burst in ED and breathing treatment which showed significant improvment. Treated as COPD exaccerbationwith breathing treatments, prophylactic antibiotic, and steroids. I have changed antibiotic to levaquin (from rochephin and azithro) for better urinary penetration due to concurrent UTI. Will treat for 10 more days. Advise to follow up with PCP in 1 week (2) Hypothyroid Current Visit: No Status: Acute Discharge Diagnosis: Hypothyroidism type: acquired Qualified Code(s): E03.9 - Hypothyroidism, unspecified Base Code: E03.9 - HYPOTHYROIDISM, UNSPECIFIED Comment: 10/23/16- will continue home medication (3) HTN (hypertension) Current Visit: No Status: Acute Discharge Diagnosis: Hypertension type: essential hypertension Base Code: I10 - ESSENTIAL ( PRIMARY) HYPERTENSION Comment: 07/27/16: -Will plan to continue patients home medications, stable presently (4) UTI (urinary tract infection), uncomplicated Current Visit: Yes Status: Acute Base Code: N39.0 - URINARY TRACT INFECTION , SITE NOT SPECIFIED Comment: 07/27/16- 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 (5) DVT prophylaxis Current Visit: No Status: Acute Base Code: [id number] - Comment: 07/25/16: - Patient will continue ASA 81mg QD once home and will start lovenox - Encouraged patient to remain ambulatory and active to reduce risk of DVT. (6) Full code status Current Visit: No Status: Acute Base Code: Z78.9 - OTHER SPECIFIED HEALTH STATUS Comment: 07/27/16- Patient remains full code status - Hospitalization Course Disposition: Home, Self-Care Abnormal Labs: Abnormal Lab Results 07/27/16 Range/Units 07:50 POC Glucose 129 H (70-110) mg/dL Condition at Discharge: (2) Stable Discharge Diagnosis: 1) hypoxia, SOB Discharge Medications - Discharge Medications Prescriptions: Levofloxacin [Levaquin] 500 mg PO DAILYFLUOR #10 tablet Home Medications: Ambulatory Orders Aspirin [Aspirin EC] 81 mg PO DAILY 10/05/14 [Last Taken 07/24/16] Calcium Carbonate/Vitamin D3 [Calcium 600 + D Tablet] 1 each PO DAILY #0 [Last Taken 07/24/16] Levothyroxine Sodium [Synthroid] 100 mcg PO DAILY 10/05/14 [Last Taken 07/24/16] Omeprazole [Prilosec] 40 mg PO DAILY 10/05/14 [Last Taken 07/24/16] Pedi Multivit #22/Vit D3/Vit K [Multivitamins Chewables Tablet] 1 each PO DAILY 10/05/14 [Last Taken 07/24/16] Sertraline HCl [Zoloft] 100 mg PO QHS 10/05/14 [Last Taken 07/24/16] Sitagliptin Phosphate [Januvia] 100 mg PO DAILY 10/05/14 [Last Taken 07/24/16] Acetaminophen [Tylenol 500Mg Tab] 1,000 mg PO Q6H #120 tablet 10/25/14 [Last Taken 07/24/16] Amlodipine Besylate [Norvasc] 10 mg PO DAILY 09/13/15 [Last Taken 1 Day Ago] Tramadol HCl [Ultram] 50 mg PO BID PRN 09/13/15 [Last Taken 07/24/16] Oxybutynin Chloride [Ditropan] 5 mg PO QHS #30 tab 10/19/15 [Last Taken 07/24/16 ] Amlodipine Besylate 5 mg PO QD tab 07/22/16 [Last Taken 07/24/16] Glimepiride 2 mg PO QD tab 07/22/16 [Last Taken 07/24/16] [place]-3 Fatty Acids [Fish Oil] 300 mg PO QD cap 07/22/16 [Last Taken 07/24/16] Levofloxacin [Levaquin] 500 mg PO DAILYFLUOR #10 tablet 07/27/16 [Last Taken Unknown] Discharge Plan - Discharge Instructions Activity at Discharge: Increase Activity as Tolerated, Wear Oxygen At All Times Diet at Discharge: Advance to Usual Diet
== END 2016-07-27 18:32 | disposition home or self-care (01) | DRG 191 ==
LOC: ER 18:38 → MEDSURG 21:01
PROVIDERS: ADMIT Family Medicine; ATTEND Family Medicine
DX: J44.1 Chronic obstructive pulmonary disease with (acute) exacerbation (principal); N39.0 Urinary tract infection, site not specified; I10 Essential (primary) hypertension; E11.9 Type 2 diabetes mellitus without complications; Z79.84 Long term (current) use of oral hypoglycemic drugs; E03.9 Hypothyroidism, unspecified; F03.90 Unspecified dementia, unspecified severity, without behavioral disturbance, psychotic disturbance, mood disturbance, and anxiety
CPT/HCPCS: 99285 ×2; 94760; 96365; 96375; 84484; 80048; 81001; 87400; 85379; 85027; 83880; 71275; 94640; 93005; 93010; Q9967; 36416; 82948; 94620; 94761; 99223; 99239; J1650; J1956; J2930; J7040

== ENCOUNTER 2016-12-27 16:27 | Emergency (ER) | payer MEDICARE, BC ==
--- NOTE | 2016-12-27 18:47 | Emergency Department Record ---
History of Present Illness - General Chief Complaint: Fall Injury Stated Complaint: FALL INJURY Time Seen by Provider: 12/27/16 18:29 Source: Patient Mode of Arrival: Ambulatory Limitations: No limitations - History of Present Illness Initial Comments: The patient is here due to a fall last night. She at some point got up to use the bathroom and fell onto her R shoulder and arm. Since she has had R shoulder and wrist pain. She is able to move the R shoulder with pain. The patient denies hitting her head or injuring her neck or any LOC. Since there has been no CP, SOB, ERICK, back or abdominal pain. The patient takes no blood thinners. MD Complaint: Fall Onset/Timin -: Days(s) Fall From: Standing When Fall Occurred: 24 hours [employer], Other Fall Witnessed: No Place Fall Occurred: Home Loss of Consciousness: None Prolonged Down Time?: No Symptoms Prior to Fall: None Location: Head Severity: Moderate Severity scale (1-10): 8 Quality: Sharp Context: History of frequent falls Associated Symptoms: Denies - [place] Coma Scale Eye Response: (4) Open spontaneously Motor Response: (6) Obeys commands Verbal Response: (5) Oriented [place] Total: 15 - Related Data Home Medications Medication Instructions Recorded Confirmed Last Taken Aspirin [Aspirin EC] 81 mg PO DAILY 10/05/14 12/27/16 07/24/16 Calcium Carbonate/Vitamin D3 1 each PO DAILY #0 10/05/14 12/27/16 07/24/16 [Calcium 600 + D Tablet] Levothyroxine Sodium [Synthroid] 112 mcg PO DAILY 10/05/14 12/27/16 07/24/16 Omeprazole [Prilosec] 40 mg PO DAILY 10/05/14 12/27/16 07/24/16 Pedi Multivit #22/Vit D3/Vit K 1 each PO DAILY 10/05/14 12/27/16 07/24/16 [Multivitamins Chewables Tablet] Sertraline HCl [Zoloft] 100 mg PO QHS 10/05/14 12/27/16 07/24/16 Sitagliptin Phosphate [Januvia] 100 mg PO DAILY 10/05/14 12/27/16 07/24/16 Tramadol HCl [Ultram] 50 mg PO QHS 09/13/15 12/27/16 07/24/16 Glimepiride 2 mg PO QD tab 07/22/16 12/27/16 07/24/16 Diclofenac Epolamine [Flector] 1 each TD QHS 12/27/16 12/27/16 Unknown Previous Rx's Medication Instructions Recorded Acetaminophen [Tylenol 500Mg Tab] 1,000 mg PO Q6H #120 tablet 10/25/14 Allergies Allergy/AdvReac Type Severity Reaction Status Date / Time butorphanol tartrate Allergy PT UNSURE Unverified 07/24/16 19:01 [From Stadol] OF REACTION Travel Screening - Travel/Exposure Within Last 30 Days Have you traveled within the last 30 days?: No Review of Systems Constitutional: Denies: Chills, Fever Eyes: Denies: Eye discharge ENT: Denies: Congestion Respiratory: Denies: Cough, Dyspnea Past Medical History - SOCIAL HISTORY Smoking Status: Never smoker Alcohol Use: None Drug Use: None - RESPIRATORY Hx Respiratory Disorders: No - CARDIOVASCULAR Hx Cardio Disorders: Yes Hx Hypertension: Yes Hx Vascular Disease: Yes - NEURO Hx Neuro Disorders: Yes Hx Dementia: Yes Hx Dizziness: Yes - GI Hx GI Disorders: Yes Hx Ulcer: Yes - Hx Genitourinary Disorders: No - ENDOCRINE Hx Endocrine Disorders: Yes Hx Diabetes: Yes Hx Thyroid Disease: Yes - MUSCULOSKELETAL Hx Musculoskeletal Disorders: Yes Hx Arthritis: Yes Hx Osteoporosis: Yes - PSYCH Hx Psych Problems: Yes Hx Anxiety: Yes Hx Depression: Yes - HEMATOLOGY/ONCOLOGY Hx Hematology/Oncology Disorders: Yes Hx Bruising: Yes (easy) Family Medical History Any Significant Family History?: Yes Family Hx Comment (NOT TO BE USED IN PLACE OF ITEMS BELOW): Unablt to assess at this time, awainting family to come in Hx Dementia: Brother/Sister Hx Depression: Brother/Sister Hx Diabetes: Brother/Sister Hx Heart Disease: Mother, Brother/Sister Hx HTN: Mother, Children, Brother/Sister Hx Resp Disorders: Father Hx Stroke: Mother Physical Exam - General General Appearance: Alert, Oriented x3, Cooperative, No acute distress - Head Head exam: Atraumatic, Normocephalic, Normal inspection - Eye Eye exam: Normal appearance, PERRL - Neck Neck exam: Normal inspection, Full ROM. negative: Lymphadenopathy, Tenderness - Respiratory Respiratory exam: Normal lung sounds bilaterally. negative: Respiratory distress - Cardiovascular Cardiovascular Exam: Regular rate, Normal rhythm, Normal heart sounds - GI/Abdominal GI/Abdominal exam: Soft, Normal bowel sounds. negative: Tenderness - Extremities Extremities exam: Normal inspection, Tenderness (There is tenderness to the anterior R shoulder and mild tenderness to the R wrist.) - Neurological Neurological exam: Alert. negative: Motor sensory deficit Course Vital Signs 12/27/16 18:21 Temperature 98.7 F Pulse Rate 70 Respiratory 20 Rate Blood Pressure 168/89 Pulse Ox 98 - Reevaluation(s) Reevaluation #1: The patient is doing very well at this time. She denies any CLAY or neck pain. I did explain the xrays to the patient and daughter and am reluctant to do any splinting due to the fact the patient needs both arms for using her walker. She is to see her PCP if not better in 3 days. 12/27/16 20:18 Medical Decision Making - Radiology Data Radiology results: Report reviewed (R wrist and shoulder: No acute changes.) Disposition Disposition: Discharge Clinical Impression: Sprain of shoulder Qualifiers: Encounter type: initial encounter Shoulder sprain type: unspecified sprain Laterality: right Qualified Code(s): S43.401A - Unspecified sprain of right shoulder joint, initial encounter Right wrist sprain Qualifiers: Encounter type: initial encounter Qualified Code(s): S63.501A - Unspecified sprain of right wrist, initial encounter Disposition: Home, Self-Care Condition: (1) Good Instructions: Fall Prevention for Older Adults (ED), Wrist Sprain (ED) Additional Instructions: Please use Tylenol for pain. Please use ice to the R shoulder and wrist when possible and make sure to use your walker when up walking. Return to the ER for any increased pain, vomiting, or fever. Please see your PCP if not better in 3 days. Forms: Patient Portal Access Time of Disposition: 20:17 Quality - Quality Measures Quality Measures: N/A - Blood Pressure Screening View Details: Yes Blood Pressure Classification: Pre-Hypertensive BP Reading Systolic Measurement: 168 Diastolic Measurement: 89 Screening for High Blood Pressure: < Pre-Hypertensive BP, F/U Documented > [ G8950] Pre-Hypertensive Follow-up Interventions: Follow-up with rescreen every year.
--- NOTE | 2016-12-29 15:21 | RADIOLOGY REPORT ---
EXAM: SHOULDER, RIGHT HISTORY: PATIENT FELL A DAY AGO WITH RIGHT SHOULDER PAIN. TECHNIQUE: Four views, right shoulder. COMPARISON: Right shoulder series, 03/14/15 at 7:03 p.m. ENCOUNTER: Initial. 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 The components appear in good position with no dislocation at the right shoulder evident. No acute fracture is identified. Some spurring at the AC joint. IMPRESSION: 1. POSTOP REVERSE-TYPE RIGHT SHOULDER ARTHROPLASTY WITH NO DISLOCATION EVIDENT. 2. SPURRING AT THE AC JOINT. JOB NUMBER: [id number] MTDD
--- NOTE | 2016-12-29 15:24 | RADIOLOGY REPORT ---
EXAM: WRIST, RIGHT 3 VIEWS HISTORY: PATIENT FELL A DAY AGO WITH RIGHT WRIST PAIN. TECHNIQUE: Three views, right wrist. COMPARISON: None. ENCOUNTER: Initial. FINDINGS: Diffuse osteopenia consistent with osteoporosis. Prominent chondrocalcinosis at the wrist. Advanced degenerative arthritis along the radial aspect of the wrist. Because of the chondrocalcinosis and advanced degenerative change, there is fairly extensive soft tissue calcification about the wrist. This is all likely chronic in nature with no convincing evidence of an acute fracture and no dislocation at the wrist evident. However, if symptoms persist, follow-up study in [id number] would be suggested to exclude a currently radiographically occult fracture. IMPRESSION: 1. OSTEOPOROSIS. 2. ADVANCED CHONDROCALCINOSIS. 3. ADVANCED DEGENERATIVE ARTHRITIS. 4. NO DEFINITE ACUTE FRACTURE OF THE RIGHT WRIST EVIDENT. JOB NUMBER: [id number] MTDD
== END 2016-12-27 20:26 | disposition home or self-care (01) ==
LOC: ER 16:27
DX: S43.401A Unspecified sprain of right shoulder joint, initial encounter (principal); S63.501A Unspecified sprain of right wrist, initial encounter; W18.30XA Fall on same level, unspecified, initial encounter; Y92.009 Unspecified place in unspecified non-institutional (private) residence as the place of occurrence of the external cause; Z91.81 History of falling
CPT/HCPCS: 99283

== ENCOUNTER 2017-01-08 13:46 | Emergency (ER) | payer MEDICARE, BC ==
[2017-01-08] MEDS ORDERED: MECLIZINE 25 MG TABLET PO ONE (14:02)
--- NOTE | 2017-01-08 14:02 | Emergency Department Record ---
History of Present Illness - General Chief Complaint: Dizziness Stated Complaint: DIZZY Time Seen by Provider: 01/08/17 13:54 Source: Patient, RN notes reviewed - History of Present Illness MD Complaint: Dizziness - Related Data Home Medications Medication Instructions Recorded Confirmed Last Taken Aspirin [Aspirin EC] 81 mg PO DAILY 10/05/14 01/08/17 07/24/16 Calcium Carbonate/Vitamin D3 1 each PO DAILY #0 10/05/14 01/08/17 07/24/16 [Calcium 600 + D Tablet] Levothyroxine Sodium [Synthroid] 112 mcg PO DAILY 10/05/14 01/08/17 07/24/16 Omeprazole [Prilosec] 40 mg PO DAILY 10/05/14 01/08/17 07/24/16 Pedi Multivit #22/Vit D3/Vit K 1 each PO DAILY 10/05/14 01/08/17 07/24/16 [Multivitamins Chewables Tablet] Sertraline HCl [Zoloft] 100 mg PO QHS 10/05/14 01/08/17 07/24/16 Sitagliptin Phosphate [Januvia] 100 mg PO DAILY 10/05/14 01/08/17 07/24/16 Tramadol HCl [Ultram] 50 mg PO QHS 09/13/15 01/08/17 07/24/16 Glimepiride 2 mg PO QD tab 07/22/16 01/08/17 07/24/16 Diclofenac Epolamine [Flector] 1 each TD QHS 12/27/16 01/08/17 Unknown Previous Rx's Medication Instructions Recorded Acetaminophen [Tylenol 500Mg Tab] 1,000 mg PO Q6H #120 tablet 10/25/14 Meclizine HCl [Antivert] 12.5 mg PO Q8H #30 tablet 01/08/17 Allergies Allergy/AdvReac Type Severity Reaction Status Date / Time butorphanol tartrate Allergy PT UNSURE Unverified 07/24/16 19:01 [From Stadol] OF REACTION Review of Systems Reviewed: No additional complaints except as noted below Constitutional: Reports: As per HPI. Denies: Chills, Fever, Malaise, Night sweats, Weakness, Weight change Eyes: Reports: As per HPI. Denies: Eye discharge, Eye pain, Photophobia, Vision change ENT: Reports: As per HPI. Denies: Congestion, Dental pain, Ear pain, Epistaxis , Hearing loss, Throat pain Respiratory: Reports: As per HPI. Denies: Cough, Dyspnea, Hemoptysis, Stridor, Wheezes Cardiovascular: Reports: As per HPI. Denies: Arrhythmia, Chest pain, Dyspnea on exertion, Edema, Murmurs, Orthopnea, Palpitations, Paroxysmal nocturnal dyspnea, Rheumatic Fever, Syncope Endocrine: Reports: As per HPI. Denies: Fatigue, Heat or cold intolerance, Polydipsia, Polyuria Gastrointestinal: Reports: As per HPI. Denies: Abdominal pain, Constipation, Diarrhea, Hematemesis, Hematochezia, Melena, Nausea, Vomiting Genitourinary: Reports: As per HPI. Denies: Abnormal menses, Discharge, Dyspareunia, Dysuria, Frequency, Hematuria, Incontinence, Retention, Urgency Musculoskeletal: Reports: As per HPI. Denies: Arthralgia, Back pain, Gout, Joint swelling, Myalgia, Neck pain Skin: Reports: As per HPI. Denies: Bruising, Change in color, Change in hair/ nails, Lesions, Pruritus, Rash Neurological: Reports: As per HPI, Vertigo. Denies: Abnormal gait, Confusion, Headache, Numbness, Paresthesias, Seizure, Tingling, Tremors, Weakness Psychiatric: Reports: As per HPI. Denies: Anxiety, Auditory hallucinations, Depression, Homicidal thoughts, Suicidal thoughts, Visual hallucinations Hematological/Lymphatic: Reports: As per HPI. Denies: Anemia, Blood Clots, Easy bleeding, Easy bruising, Swollen glands Past Medical History - SOCIAL HISTORY Smoking Status: Never smoker Drug Use: None - RESPIRATORY Hx Respiratory Disorders: No - CARDIOVASCULAR Hx Cardio Disorders: Yes Hx Hypertension: Yes Hx Vascular Disease: Yes - NEURO Hx Neuro Disorders: Yes Hx Dementia: Yes Hx Dizziness: Yes - GI Hx GI Disorders: Yes Hx Ulcer: Yes - Hx Genitourinary Disorders: No - ENDOCRINE Hx Endocrine Disorders: Yes Hx Diabetes: Yes Hx Thyroid Disease: Yes - MUSCULOSKELETAL Hx Musculoskeletal Disorders: Yes Hx Arthritis: Yes Hx Osteoporosis: Yes - PSYCH Hx Psych Problems: Yes Hx Anxiety: Yes Hx Depression: Yes - HEMATOLOGY/ONCOLOGY Hx Hematology/Oncology Disorders: Yes Hx Bruising: Yes (easy) Family Medical History Family Hx Comment (NOT TO BE USED IN PLACE OF ITEMS BELOW): Unablt to assess at this time, awainting family to come in Hx Dementia: Brother/Sister Hx Depression: Brother/Sister Hx Diabetes: Brother/Sister Hx Heart Disease: Mother, Brother/Sister Hx HTN: Mother, Children, Brother/Sister Hx Resp Disorders: Father Hx Stroke: Mother Physical Exam - General General Appearance: Alert, Oriented x3, Cooperative, No acute distress - Head Head exam: Normal inspection - Eye Eye exam: Normal appearance, PERRL Pupils: Normal accommodation - ENT ENT exam: Normal exam, Mucous membranes moist, Normal external ear exam, Normal orophraynx, TM's normal bilaterally Ear exam: Normal external inspection. negative: External canal tenderness Nasal Exam: Normal inspection. negative: Discharge, Sinus tenderness Mouth exam: Normal external inspection, Tongue normal Teeth exam: Normal inspection. negative: Dental caries Throat exam: Normal inspection. negative: Tonsillar erythema, Tonsillar exudate - Neck Neck exam: Normal inspection, Full ROM. negative: Tenderness - Respiratory Respiratory exam: Normal lung sounds bilaterally. negative: Respiratory distress - Cardiovascular Cardiovascular Exam: Regular rate, Normal rhythm, Normal heart sounds - GI/Abdominal GI/Abdominal exam: Soft, Normal bowel sounds. negative: Tenderness - Rectal Rectal exam: Deferred - exam: Deferred - Extremities Extremities exam: Normal inspection, Full ROM, Normal capillary refill. negative: Tenderness - Back Back exam: Reports: Normal inspection, Full ROM. Denies: Muscle spasm, Rash noted, Tenderness - Neurological Neurological exam: Alert, Normal gait, Oriented X3, Reflexes normal - Psychiatric Psychiatric exam: Normal affect, Normal mood - Skin Skin exam: Dry, Intact, Normal color, Warm Medical Decision Making - Data Complexity MDM Data: Labs Ordered and/or Reviewed, X-Ray Ordered and/or Reviewed (CT scan of head neg) - Lab Data Result diagrams: 01/08/17 13:30 01/08/17 13:30 Disposition Clinical Impression: BPV (benign positional vertigo) Qualifiers: Laterality: unspecified laterality Qualified Code(s): H81.10 - Benign paroxysmal vertigo, unspecified ear Disposition: Home, Self-Care Condition: (1) Good Instructions: Benign Paroxysmal Positional Vertigo (ED) Additional Instructions: antivert three times a day Prescriptions: Meclizine HCl [Antivert] 12.5 mg PO Q8H #30 tablet Forms: Patient Portal Access Time of Disposition: 15:34 Quality - Quality Measures Quality Measures: N/A - Blood Pressure Screening Does Patient Have Any of the Following: No Blood Pressure Classification: Hypertensive Reading Systolic Measurement: 161 Diastolic Measurement: 73 Screening for High Blood Pressure: < First Hypertensive BP, F/U Documented > [ G8950] First Hypertensive Follow-up Interventions: Referral to alternative/primary care provider.
[2017-01-08 14:09] LABS: HEMATOCRIT 35.6 % (35.0-47.0); HEMOGLOBIN 11.5 gm/dl (11.6-16.0); MEAN CELL VOLUME 94.2 fl (81-97); MEAN CORPUSCULAR HEMOGLOBIN 30.4 pg (27-33); MEAN CORPUSCULAR HGB CONC 32.3 g/dl (32-36); MEAN PLATELET VOLUME 9.5 fl (7.4-10.4); PLATELET COUNT 210 K/uL (130-400); RED BLOOD COUNT 3.78 M/uL (3.80-5.40); RED CELL DISTRIBUTION WIDTH 14.2 % (11.5-14.5); WHITE BLOOD COUNT W/O DIFF 6.5 K/uL (4.2-12.2)
[2017-01-08 14:25] LABS: ALBUMIN 3.7 gm/dL (3.5-5.0); ALKALINE PHOSPHATASE 99 U/L (38-126); ALT/SGPT 45 U/L (9-52); ANION GAP 6.9 (7-16); AST/SGOT 39 U/L (14-36); BILIRUBIN,TOTAL 0.82 mg/dL (0.2-1.3); BLOOD UREA NITROGEN 18 mg/dL (7-17); CARBON DIOXIDE 25.1 mmol/L (22-30); CREATININE 0.9 mg/dL (0.52-1.04); EST GLOMERULAR FILTRATION RATE > 60 ml/min; GLUCOSE,RANDOM 106 mg/dL (70-110); TOTAL PROTEIN 6.7 gm/dL (6.3-8.2)
--- NOTE | 2017-01-11 08:51 | CT SCAN REPORT ---
EXAM: HEAD CT WITHOUT CONTRAST HISTORY: DIZZINESS, SYNCOPE. TECHNIQUE: Contiguous axial images from the cerebral convexities to the foramen magnum were obtained without contrast. Comparison: Head CT 10/27/14. Hand dominance: Right. Encounter: Initial. FINDINGS: Moderate generalized atrophy of the brain. No acute intracranial hemorrhage, mass effect, or midline shift. Mild to moderate decreased attenuation in the periventricular white matter of the cerebral hemispheres. No CT evidence of large acute territorial infarct. Fluid density in the left lentiform nucleus could relate to remote lacunar infarct or prominent perivascular CSF space of no significance measuring 6 mm. The ventricles, basal cisterns, and sulci are within normal limits. The osseous structures are unremarkable. Extensive mucosal thickening right maxillary sinus. IMPRESSION: 1. NO ACUTE INTRACRANIAL PROCESS. 2. MODERATE GENERALIZED ATROPHY OF THE BRAIN WITH MILD TO MODERATE CHRONIC SMALL VESSEL ISCHEMIC CHANGE. 3. CHRONIC RIGHT MAXILLARY SINUSITIS. JOB NUMBER: [id number] MTDD
== END 2017-01-08 16:09 | disposition home or self-care (01) ==
LOC: ER 13:46
DX: H81.10 Benign paroxysmal vertigo, unspecified ear (principal); I10 Essential (primary) hypertension; R55 Syncope and collapse
CPT/HCPCS: 70450; 80048; 80076; 85027; 85730; 99283; 99284

== ENCOUNTER 2017-07-18 12:07 | Emergency (ER) | payer MEDICARE, BC ==
--- NOTE | 2017-07-18 12:17 | Emergency Department Record ---
History of Present Illness - General Chief complaint: Pain Stated complaint: RT HIP PAIN Time Seen by Provider: 07/18/17 12:13 Source: Patient Mode of Arrival: Ambulatory Limitations: No limitations - History of Present Illness Initial comments: 87 yo female presents with right hip pain. The hip has hurt for about one week. She is able to ambulate. No fall in the last week. She did have a fall about one month ago but did not have any significant pain then. No fevers or chills. The hip has hurt on and off for a long period of time but returned in the last week. She is taking Ultram. No other current symptoms. She uses a walker when needed and liver with her daughter who is an RN MD Complaint: Joint pain -: Week(s) (1) Location: Right -: Yes Arthralgia Radiation: Proximal Quality: Aching Consistency: Constant Improves with: Immobilization Worsens with: Weight bearing Associated Symptoms: Denies other symptoms - Related Data Previous Rx's Medication Instructions Recorded Acetaminophen [Tylenol 500Mg Tab] 1,000 mg PO Q6H #120 tablet 10/25/14 Meclizine HCl [Antivert] 12.5 mg PO Q8H #30 tablet 01/08/17 Allergies Allergy/AdvReac Type Severity Reaction Status Date / Time butorphanol tartrate Allergy PT UNSURE Verified 07/18/17 12:23 [From Stadol] OF REACTION Review of Systems Constitutional: Denies: Chills, Fever, Weakness Eyes: Denies: Eye discharge ENT: Denies: Congestion, Throat pain Respiratory: Denies: Cough Cardiovascular: Denies: Chest pain, Palpitations, Syncope Endocrine: Denies: Fatigue, Polydipsia, Polyuria Gastrointestinal: Denies: Abdominal pain, Diarrhea, Nausea, Vomiting Genitourinary: Denies: Dysuria, Urgency Musculoskeletal: Reports: Arthralgia. Denies: Back pain, Joint swelling, Myalgia, Neck pain Skin: Denies: Bruising, Change in color, Rash Neurological: Denies: Headache, Numbness, Weakness Psychiatric: Denies: Anxiety Hematological/Lymphatic: Denies: Blood Clots, Easy bleeding, Easy bruising, Swollen glands Past Medical History - SOCIAL HISTORY Smoking Status: Never smoker Drug Use: None - RESPIRATORY Hx Respiratory Disorders: No - CARDIOVASCULAR Hx Cardio Disorders: Yes Hx Hypertension: Yes Hx Vascular Disease: Yes - NEURO Hx Neuro Disorders: Yes Hx Dementia: Yes Hx Dizziness: Yes - GI Hx GI Disorders: Yes Hx Ulcer: Yes - Hx Genitourinary Disorders: No - ENDOCRINE Hx Endocrine Disorders: Yes Hx Diabetes: Yes Hx Thyroid Disease: Yes - MUSCULOSKELETAL Hx Musculoskeletal Disorders: Yes Hx Arthritis: Yes Hx Osteoporosis: Yes - PSYCH Hx Psych Problems: Yes Hx Anxiety: Yes Hx Depression: Yes - HEMATOLOGY/ONCOLOGY Hx Hematology/Oncology Disorders: Yes Hx Bruising: Yes (easy) Family Medical History Family Hx Comment (NOT TO BE USED IN PLACE OF ITEMS BELOW): Unablt to assess at this time, awainting family to come in Hx Dementia: Brother/Sister Hx Depression: Brother/Sister Hx Diabetes: Brother/Sister Hx Heart Disease: Mother, Brother/Sister Hx HTN: Mother, Children, Brother/Sister Hx Resp Disorders: Father Hx Stroke: Mother Physical Exam - General General Appearance: Alert, Oriented x3, Cooperative Limitations: No limitations - Head Head exam: Normal inspection - Eye Eye exam: Normal appearance. negative: Conjunctival injection, Periorbital swelling, Scleral icterus - ENT ENT exam: Normal exam, Mucous membranes moist Ear exam: Normal external inspection Nasal Exam: Normal inspection Mouth exam: Normal external inspection - Neck Neck exam: Normal inspection - Respiratory Respiratory exam: Normal lung sounds bilaterally. negative: Respiratory distress - Cardiovascular Cardiovascular Exam: Regular rate, Normal rhythm, Normal heart sounds - GI/Abdominal GI/Abdominal exam: Soft. negative: Tenderness - Rectal Rectal exam: Deferred - exam: Deferred - Extremities Extremities exam: Normal inspection, Full ROM, Normal capillary refill, Tenderness (tender lateral hip, full ROM, no medial or groin pain), Other ( Bears weight but with some pain). negative: Joint swelling Image of Full Body: 1 - lateral tenderness, negative log roll, full normal ROM - Neurological Neurological exam: Alert, Oriented X3 - Psychiatric Psychiatric exam: Normal affect, Normal mood - Skin Skin exam: Dry, Intact, Normal color, Warm Course - Reevaluation(s) Reevaluation #1: 07/18/17 13:15 The XR was read as arthritic changes no fracture. We discussed the results and a plan for follow up referral to Ortho We also discussed reasons to return to the ED for a recheck if not improving or worse. She is ambulating and she has not had recent trauma in the last week to suspect occult fracture at this time Disposition Disposition: Discharge Clinical Impression: Hip arthritis Disposition: Home, Self-Care Condition: (1) Good Instructions: Hip Bursitis (ED), Arthritis (ED) Additional Instructions: Rest avoiding prolonged standing Return to the ER if worse or not improving You have been referred to the [facility] Ortho clinic as well Referrals: KARIME SCHAFER [DOCTOR OF OSTEOPATH] - [facility] Specialty Clinics [Provider Group] Forms: Patient Portal Access Time of Disposition: 13:22 Quality - Quality Measures Quality Measures: N/A - Blood Pressure Screening Does Patient Have Any of the Following: No Blood Pressure Classification: Pre-Hypertensive BP Reading Systolic Measurement: 137 Diastolic Measurement: 79 Screening for High Blood Pressure: < Pre-Hypertensive BP, F/U Documented > [ [id number]] Pre-Hypertensive Follow-up Interventions: Referral to alternative/primary care provider.
[2017-07-18] MEDS ORDERED: TRAMADOL HCL 50 MG TABLET PO ONE (12:33)
--- NOTE | 2017-07-19 07:24 | RADIOLOGY REPORT ---
EXAM: RIGHT HIP WITH PELVIS HISTORY: WORSENING RIGHT HIP PAIN OVER THE PAST WEEK. NO KNOWN INJURY. TECHNIQUE: AN AP view of the pelvis and AP and lateral views of the right hip were obtained. Comparison: 01/23/16. FINDINGS: The bones are osteopenic, but appear intact. There is no acute fracture, dislocation, or destructive process. There are moderate arthritic changes within both hips, right greater than left. There is joint space narrowing, articular sclerosis, subchondral cyst formation, and marginal osteophyte formation. Moderate arthritic changes are also present within the lumbar spine, sacroiliac joints, and pubic symphysis. Bowel sutures are present within the left hemipelvis. IMPRESSION: 1. NO ACUTE HIP OR PELVIC PATHOLOGY. 2. MODERATE ARTHRITIC CHANGES AND DIFFUSE OSTEOPENIA ABOVE. J[facility]BER: [id number] [facility]
== END 2017-07-18 13:28 | disposition home or self-care (01) ==
LOC: ER 12:07
DX: M16.11 Unilateral primary osteoarthritis, right hip (principal); I10 Essential (primary) hypertension; E11.9 Type 2 diabetes mellitus without complications; Z79.84 Long term (current) use of oral hypoglycemic drugs
CPT/HCPCS: 99283

== ENCOUNTER 2017-10-10 12:45 | Emergency (ER) | payer MEDICARE, BC ==
--- NOTE | 2017-10-10 13:10 | Emergency Department Record ---
History of Present Illness - General Chief Complaint: Fall Injury Stated Complaint: FELL WEDNESDAY LT SHOULDER/UPPER ARM PAIN Time Seen by Provider: 10/10/17 12:56 Source: Patient Mode of Arrival: Ambulatory Limitations: No limitations - History of Present Illness Initial Comments: 87 yo female presents with left shoulder pain and dizziness after a fall on . She was walking in a store parking lot and tripped. She hit her head and left shoulder. She does have chronic dizziness but states the dizziness is increased. She injured her head 2 weeks ago as well in the same area with a fall. the elbow has continued to ache since the fall. No confusion. No anticoagulants. 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 (4) Fall Witnessed: Yes, by family Place Fall Occurred: Other (Parking lot) Loss of Consciousness: None Prolonged Down Time?: No Symptoms Prior to Fall: None Location: Head, Other (Left shoulder and elbow) Location - Extremities: Left: Shoulder, Elbow Severity: Mild Quality: Aching Context: Other Associated Symptoms: Denies - [place] Coma Scale Eye Response: (4) Open spontaneously Motor Response: (6) Obeys commands Verbal Response: (5) Oriented Ubaldo Total: 15 - Related Data Previous Rx's Medication Instructions Recorded Acetaminophen [Tylenol 500Mg Tab] 1,000 mg PO Q6H #120 tablet 10/25/14 Meclizine HCl [Antivert] 12.5 mg PO Q8H #30 tablet 01/08/17 Allergies Allergy/AdvReac Type Severity Reaction Status Date / Time butorphanol tartrate Allergy PT UNSURE Verified 10/10/17 12:55 [From Stadol] OF REACTION Review of Systems Constitutional: Denies: Chills, Fever, Malaise, Weakness Eyes: Denies: Eye discharge, Eye pain, Photophobia, Vision change ENT: Denies: Congestion, Throat pain Respiratory: Denies: Cough Cardiovascular: Denies: Chest pain, Palpitations, Syncope Endocrine: Denies: Fatigue Gastrointestinal: Denies: Abdominal pain, Diarrhea, Nausea, Vomiting Genitourinary: Denies: Dysuria, Urgency Musculoskeletal: Reports: Arthralgia, Myalgia. Denies: Back pain, Gout, Joint swelling, Neck pain Skin: Reports: Bruising. Denies: Change in color, Rash Neurological: Reports: Vertigo. Denies: Abnormal gait, Confusion, Headache, Numbness, Seizure, Tingling, Tremors, Weakness Psychiatric: Denies: Anxiety Hematological/Lymphatic: Reports: Easy bruising. Denies: Blood Clots, Easy bleeding, Swollen glands Past Medical History - SOCIAL HISTORY Smoking Status: Never smoker Drug Use: None - RESPIRATORY Hx Respiratory Disorders: No - CARDIOVASCULAR Hx Cardio Disorders: Yes Hx Hypertension: Yes Hx Vascular Disease: Yes - NEURO Hx Neuro Disorders: Yes Hx Dementia: Yes Hx Dizziness: Yes - GI Hx GI Disorders: Yes Hx Ulcer: Yes - Hx Genitourinary Disorders: No - ENDOCRINE Hx Endocrine Disorders: Yes Hx Diabetes: Yes Hx Thyroid Disease: Yes - MUSCULOSKELETAL Hx Musculoskeletal Disorders: Yes Hx Arthritis: Yes Hx Osteoporosis: Yes - PSYCH Hx Psych Problems: Yes Hx Anxiety: Yes Hx Depression: Yes - HEMATOLOGY/ONCOLOGY Hx Hematology/Oncology Disorders: Yes Hx Bruising: Yes (easy) Family Medical History Family Hx Comment (NOT TO BE USED IN PLACE OF ITEMS BELOW): Unablt to assess at this time, awainting family to come in Hx Dementia: Brother/Sister Hx Depression: Brother/Sister Hx Diabetes: Brother/Sister Hx Heart Disease: Mother, Brother/Sister Hx HTN: Mother, Children, Brother/Sister Hx Resp Disorders: Father Hx Stroke: Mother Physical Exam - General General Appearance: Alert, Oriented x3, Cooperative, No acute distress Limitations: No limitations - Head Head exam: negative: Atraumatic Head exam detail: Contusion. negative: Shukla's sign, CSF otorrhea, CSF rhinorrhea, General tenderness, Hematoma, Laceration Image of Face/Head: 1 - brusing, no raised hematoma, no step off - Eye Eye exam: Normal appearance, PERRL. negative: Conjunctival injection, Scleral icterus Pupils: Normal accommodation - ENT ENT exam: Normal exam, Mucous membranes moist Ear exam: Normal external inspection Nasal Exam: Normal inspection Mouth exam: Normal external inspection - Neck Neck exam: Normal inspection, Full ROM. negative: Lymphadenopathy, Meningismus , Tenderness - Respiratory Respiratory exam: Normal lung sounds bilaterally. negative: Respiratory distress - Cardiovascular Cardiovascular Exam: Regular rate, Normal rhythm, Normal heart sounds Peripheral Pulses: 2+: Radial (R), Radial (L) - GI/Abdominal GI/Abdominal exam: Soft. negative: Tenderness - Rectal Rectal exam: Deferred - exam: Deferred - Extremities Extremities exam: Normal inspection, Normal capillary refill, Tenderness Image of Full Body: 1 - tenderness of the left shoulder to palpation with good ROM, no clinical dislocation, elbow non tender but some pain with supination and pronation - Back Back exam: Denies: Normal inspection, CVA tenderness (R), CVA tenderness (L), Paraspinal tenderness, Tenderness, Vertebral tenderness - Neurological Neurological exam: Alert, Normal gait, Oriented X3 - Psychiatric Psychiatric exam: Normal affect, Normal mood Course - Reevaluation(s) Reevaluation #1: The patient and daughter were informed of no operational CT scanner at [facility] She agrees with transport to [facility] for CT. 10/10/17 13:10 10/10/17 14:34 No acute fracture of the left shoulder or elbow. Rotator cuff disease and degenerative changes noted. The patient was transported to [facility] for the CT scan. 10/10/17 15:50 CT of the Head Report No acute process or intracranial abnormal abnormality. The results were discussed with the patient and family. We discussed follow up and home care as well as reasons to return Disposition Disposition: Discharge Clinical Impression: Contusion of elbow, left Qualifiers: Encounter type: initial encounter Qualified Code(s): S50.02XA - Contusion of left elbow, initial encounter Contusion of shoulder, left Qualifiers: Encounter type: initial encounter Qualified Code(s): S40.012A - Contusion of left shoulder, initial encounter Head contusion Qualifiers: Encounter type: initial encounter Laterality: left Disposition: Home, Self-Care Condition: (1) Good Instructions: Fall Prevention for Older Adults (ED) Additional Instructions: Call your doctor for close followup in the next week if any pain continues Return to the ER if you have any new symptoms or concerns Forms: Patient Portal Access Time of Disposition: 14:36 Quality - Quality Measures Quality Measures: Blunt Head Trauma (>2yr) - [place] Coma Scale Eye Response: (4) Open spontaneously Motor Response: (6) Obeys commands Verbal Response: (5) Oriented [place] Total: 15 - Blunt Head Trauma - Adult Quality Measure: Measure #415: Utilization of CT for Minor Blunt Head Trauma ICD10 Codes Entered: Yes Was CT ordered: Yes Does Patient Have Any of the Following: No Exclusions Patient Presented Within 24 Hours of Injury: No Ubaldo Score: [address] for Minor Blunt Head Trauma: Not Eligible For Measure Additional Inclusion Criteria: More than 24hrs (OR) GCS not 15 (OR) CT not ordered. Indications For CT: Age 65 Years and Older Not Eligible Reason: Injury Greater Than 24 Hours Ago - Blood Pressure Screening Does Patient Have Any of the Following: Active Dx of HTN Blood Pressure Classification: Hypertensive Reading Systolic Measurement: 141 Diastolic Measurement: 92 Screening for High Blood Pressure: Patient Exclusion, Hx of HTN [G9744]
[2017-10-10] MEDS ORDERED: SOD CHLOR 0.9% WITH KCL 40MEQ 40 MEQ/1,000 ML IV.SOLN IV SCH (14:45)
--- NOTE | 2017-10-11 08:57 | RADIOLOGY REPORT ---
EXAM: LEFT ELBOW, THREE VIEWS HISTORY: PATIENT HAS A HISTORY OF FALL. TECHNIQUE: Three views of the left elbow are provided without comparison examination. FINDINGS: Osteopenia of the osseous structures is noted. There is no radiographic evidence of a fracture or dislocation of the left elbow. The antecubital fat pad and olecranon fat pads are unremarkable. No significant soft tissue swelling is noted. IMPRESSION: OSTEOPENIA OF THE OSSEOUS STRUCTURES IS NOTED WITHOUT RADIOGRAPHIC EVIDENCE OF AN ACUTE PROCESS INVOLVING THE LEFT ELBOW. JOB NUMBER: [id number] [facility]
--- NOTE | 2017-10-11 09:02 | RADIOLOGY REPORT ---
EXAM: LEFT SHOULDER, THREE VIEWS HISTORY: PATIENT HAS A HISTORY OF FALL. TECHNIQUE: Three views of the left shoulder are provided without comparison examinations. FINDINGS: Osteopenia of the osseous structures is noted. There is no radiographic evidence of a fracture or dislocation of the left shoulder. There is acromioclavicular hypertrophy. There is significant narrowing of the acromiohumeral distance suggesting rotator cuff degeneration. IMPRESSION: FINDINGS SUGGESTIVE OF DEGENERATIVE CHANGES OF THE LEFT SHOULDER ARE NOTED DISCUSSED ABOVE. THERE IS NO RADIOGRAPHIC EVIDENCE OF AN ACUTE PROCESS INVOLVING THE LEFT SHOULDER. JOB NUMBER: [id number] [facility]
== END 2017-10-10 16:19 | disposition home or self-care (01) ==
LOC: ER 12:45
DX: S00.03XA Contusion of scalp, initial encounter (principal); S40.012A Contusion of left shoulder, initial encounter; S50.02XA Contusion of left elbow, initial encounter; R42 Dizziness and giddiness; I10 Essential (primary) hypertension; E11.9 Type 2 diabetes mellitus without complications; W01.198A Fall on same level from slipping, tripping and stumbling with subsequent striking against other object, initial encounter; Y92.481 Parking lot as the place of occurrence of the external cause
CPT/HCPCS: 99283; 99284